=== PATIENT | female | born 1955 | race American Indian/Alaskan Native ===

== ENCOUNTER 2016-10-25 21:34 | Emergency (ER) | payer MEDICAID ==
[2016-10-25 21:47] VITALS: BP 153/78
[2016-10-25] MEDS ORDERED: Albuterol 0.083% 2.5 MG/3 ML Neb Soln NEB ONE (22:27)
[2016-10-25] MEDS ORDERED: methylPREDNISolone Sodium Succinate 125 MG/2 ML SDV IVPUSH ONE (22:27)
--- NOTE | 2016-10-25 22:33 | EDM.PDOC ---
ED HPI GENERAL MEDICAL PROBLEM - General Chief Complaint: Respiratory Problem Stated Complaint: ASMA PAIN [id number] Time Seen by Provider: 10/25/16 22:10 Source of Information: Reports: Patient History Limitations: Reports: No Limitations - History of Present Illness INITIAL COMMENTS - FREE TEXT/NARRATIVE: increasing SOB over past 2 days with RUQ pain radiating to back Previous Pebbles. No fever or chills. Productive cough clear phlegm Duration: Day(s): Location: Reports: Chest Quality: Reports: Pressure, Sharp Right Chest Pain Score (Numeric/FACES): 6 - Related Data Allergies Allergy/AdvReac Type Severity Reaction Status Date / Time amoxicillin [Amoxicillin] Allergy Cannot Verified 10/25/16 21:47 Remember cephalexin [Cephalexin] Allergy Cannot Verified 10/25/16 21:47 Remember Penicillins Allergy Cannot Verified 10/25/16 21:47 Remember Home Meds: Home Meds Phenytoin Sodium Extended [Dilantin] 100 mg PO ACLUN 03/20/13 [History] Simvastatin [Zocor] 20 mg PO BEDTIME 03/20/13 [History] Tiotropium [Spiriva HandiHaler] 18 mcg INH DAILY 03/20/13 [History] metFORMIN HCl [Metformin HCl] 500 mg PO BID 03/20/13 [History] Fluticasone/Salmeterol [Advair 500-50] 1 puff INH BID 04/05/13 [History] HCTZ/Triamterene [Maxzide 25-37.5 MG] 0.5 tab PO DAILY 04/05/13 [History] Ipratropium/Albuterol Sulfate [Duoneb 0.5 MG-3 MG/3 ML] 3 ml INH QID PRN [History] Phenytoin Sodium Extended [Dilantin] 200 mg PO BEDTIME 04/05/13 [History] Phenytoin Sodium Extended [Dilantin] 200 mg PO QAM 04/05/13 [History] Past Medical History HEENT History: Reports: Impaired Vision Other HEENT History: wears glasses Cardiovascular History: Reports: High Cholesterol, Hypertension, SOB on Exertion Respiratory History: Reports: Asthma, Bronchitis, Recurrent, COPD, Pneumonia, Recurrent, 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: Musculoskeletal History: Reports: Arthritis Other Musculoskeletal History: right knee pain Neurological History: Reports: Seizure Psychiatric History: Reports: None Endocrine/Metabolic History: Reports: Diabetes, Type II, Obesity/BMI 30+ Oncologic (Cancer) History: Reports: None Dermatologic History: Reports: None - Infectious Disease History Infectious Disease History: Reports: Chicken Pox, Mumps, Shingles - Past Surgical History GI Surgical History: Reports: Appendectomy, Cholecystectomy Musculoskeletal Surgical History: Reports: None Social & Family History - Family History Family Medical History: Noncontributory - Tobacco Use Smoking Status *Q: Never Smoker Years of Tobacco use: 20 Packs/Tins Daily: 0.5 Used Tobacco, but Quit: No Month Tobacco Last Used: February Hand Smoke Exposure: No - Alcohol Use Days Per Week of Alcohol Use: 0 - Recreational Drug Use Recreational Drug Use: No - Living Situation & Occupation Living situation: Reports: with Family Occupation: Retired ED ROS GENERAL - Review of Systems Review Of Systems: See Below Constitutional: Denies: Fever, Chills, Weakness HEENT: Reports: No Symptoms Respiratory: Reports: Shortness of Breath, Wheezing, Pleuritic Chest Pain, Cough Cardiovascular: Reports: No Symptoms GI/Abdominal: Reports: Abdominal Pain (ruq radiating to back) : Reports: No Symptoms Musculoskeletal: Reports: No Symptoms Neurological: Reports: No Symptoms Psychiatric: Reports: No Symptoms ED EXAM, GENERAL - Physical Exam Exam: See Below Exam Limited By: No Limitations General Appearance: Alert, Mild Distress, Obese Eye Exam: Bilateral Eye: EOMI, PERRL Ears: Normal External Exam Nose: Normal Inspection Throat/Mouth: Normal Inspection Head: Atraumatic, Normocephalic Neck: Normal Inspection Respiratory/Chest: No Respiratory Distress, Rhonchi (throughout), Wheezing Cardiovascular: Normal Peripheral Pulses, Regular Rate, Rhythm GI/Abdominal: Normal Bowel Sounds, Soft, Tender (mild epigastri and RUQ with palpation) Extremities: Normal Inspection. No: Pedal Edema Neurological: Alert, Oriented Psychiatric: Normal Affect Skin Exam: Warm, Dry, Intact, Normal Color Course - Vital Signs Last Recorded V/S: Last Vital Signs Temp 97.2 F 10/25/16 21:42 Pulse 99 10/25/16 21:42 Resp 20 10/25/16 21:42 BP 153/78 H 10/25/16 21:42 Pulse Ox 94 L 10/25/16 21:42 - Orders/Labs/Meds Orders: Active Orders 24 hr Category Date Time Status EKG Documentation Completion [RC] STAT Care 10/25/16 22:06 Active RT Aerosol Therapy [RC] ASDIRECTED Care 10/25/16 22:28 Active Labs: Laboratory Tests 10/25/16 10/25/16 10/25/16 Range/Units 22:35 22:35 22:35 WBC 15.4 H (5.0-10.0) 10^3/uL RBC 4.39 (4.2-5.4) 10^6/uL Hgb 13.1 (12.0-16.0) g/dL Hct 40.5 (37.0-47.0) % MCV 92.3 (80-100) fL MCH 29.8 (27.0-34.0) pg MCHC 32.3 L (33.0-35.0) g/dL Plt Count 239 (150-450) 10^3/uL Neut % (Auto) 62.7 (42.2-75.2) % Lymph % (Auto) 25.7 (20.5-50.1) % [place] % (Auto) 7.0 (2-8) % Eos % (Auto) 4.4 H (1.0-3.0) % Baso % (Auto) 0.2 (0.0-1.0) % Sodium 141 (135-145) mmol/L Potassium 3.8 (3.6-5.0) mmol/L Chloride 103 (101-111) mmol/L Carbon Dioxide 26.0 (21.0-31.0) mmol/L Anion Gap 15.8 BUN 18 (7-18) mg/dL Creatinine 0.8 (0.6-1.3) mg/dL Est Cr Clr Drug Dosing 56.93 mL/min Estimated GFR (MDRD) > 60 BUN/Creatinine Ratio 22.50 Glucose 124 H (74-105) mg/dL Calcium 8.7 (8.4-10.2) mg/dl Total Bilirubin 0.3 (0.2-1.0) mg/dL AST 18 (10-42) IU/L ALT 22 (10-60) IU/L Alkaline Phosphatase 82 (42-121) IU/L CK-MB (CK-2) 2.40 (0.4-4.7) ng/mL Troponin I < 0.02 (0.00-0.02) ng/ml B-Natriuretic Peptide < 5 (0-100) pg/ml Total Protein 7.6 (6.7-8.2) g/dl Albumin 3.5 (3.2-5.5) g/dl Globulin 4.1 Albumin/Globulin Ratio 0.85 Amylase 34 (28-100) U/L Lipase 19 L (22-51) U/L Urine Color (YELLOW) Urine Appearance (CLEAR) Urine pH (5.0-9.0) Ur Specific [place] (1.005-1.030) Urine Protein (NEGATIVE) Urine Glucose (UA) (NEGATIVE) Urine Ketones (NEGATIVE) Urine Occult Blood (NEGATIVE) Urine Nitrite (NEGATIVE) Urine Bilirubin (NEGATIVE) Urine Urobilinogen (0.2-1.0) mg/dL Ur Leukocyte Esterase (NEGATIVE) Urine RBC /HPF Urine WBC (0-5/HPF) /HPF Ur Epithelial Cells /HPF Urine Bacteria (0-FEW/HPF) /HPF 10/26/16 Range/Units 00:00 WBC (5.0-10.0) 10^3/uL RBC (4.2-5.4) 10^6/uL Hgb (12.0-16.0) g/dL Hct (37.0-47.0) % MCV (80-100) fL MCH (27.0-34.0) pg MCHC (33.0-35.0) g/dL Plt Count (150-450) 10^3/uL Neut % (Auto) (42.2-75.2) % Lymph % (Auto) (20.5-50.1) % [place] % (Auto) (2-8) % Eos % (Auto) (1.0-3.0) % Baso % (Auto) (0.0-1.0) % Sodium (135-145) mmol/L Potassium (3.6-5.0) mmol/L Chloride (101-111) mmol/L Carbon Dioxide (21.0-31.0) mmol/L Anion Gap BUN (7-18) mg/dL Creatinine (0.6-1.3) mg/dL Est Cr Clr Drug Dosing mL/min Estimated GFR (MDRD) BUN/Creatinine Ratio Glucose (74-105) mg/dL Calcium (8.4-10.2) mg/dl Total Bilirubin (0.2-1.0) mg/dL AST (10-42) IU/L ALT (10-60) IU/L Alkaline Phosphatase (42-121) IU/L CK-MB (CK-2) (0.4-4.7) ng/mL Troponin I (0.00-0.02) ng/ml B-Natriuretic Peptide (0-100) pg/ml Total Protein (6.7-8.2) g/dl Albumin (3.2-5.5) g/dl Globulin Albumin/Globulin Ratio Amylase (28-100) U/L Lipase (22-51) U/L Urine Color Yellow (YELLOW) Urine Appearance Slightly cloudy (CLEAR) Urine pH 5.5 (5.0-9.0) Ur Specific [place] 1.010 (1.005-1.030) Urine Protein Negative (NEGATIVE) Urine Glucose (UA) Negative (NEGATIVE) Urine Ketones Negative (NEGATIVE) Urine Occult Blood Small H (NEGATIVE) Urine Nitrite Negative (NEGATIVE) Urine Bilirubin Negative (NEGATIVE) Urine Urobilinogen 0.2 (0.2-1.0) mg/dL Ur Leukocyte Esterase Negative (NEGATIVE) Urine RBC 0-5 /HPF Urine WBC 0-5 (0-5/HPF) /HPF Ur Epithelial Cells Few /HPF Urine Bacteria Few (0-FEW/HPF) /HPF Meds: Medications Discontinued Medications Generic Name Dose Route Start Last Admin Trade Name Freq PRN Reason Stop Dose Admin Albuterol 2.5 mg 10/25/16 22:27 10/25/16 22:34 Proventil Neb Soln NEB 10/25/16 22:28 2.5 mg ONETIME ONE Administration Methylprednisolone Sodium Succinate 125 mg 10/25/16 22:27 10/25/16 22:41 Solu-Medrol IVPUSH 10/25/16 22:28 125 mg ONETIME ONE Administration Departure - Departure Time of Disposition: 01:12 Disposition: Home, Self-Care 01 Condition: Good Clinical Impression: RUQ pain, Diabetes mellitus type 2 in obese Asthma Qualifiers: Asthma severity: moderate persistent Asthma complication type: uncomplicated Qualified Code(s): J45.40 - Moderate persistent asthma, uncomplicated - Discharge Information Instructions: Asthma, Adult Forms: ED Department Discharge Additional Instructions: continue nebulizer treatments follow up in clinic next week for recheck, sooner if symptoms worsen - My Orders Last 24 Hours: My Active Orders 10/25/16 22:06 EKG Documentation Completion [RC] STAT 10/25/16 22:28 RT Aerosol Therapy [RC] ASDIRECTED - Assessment/Plan Last 24 Hours: My Active Orders 10/25/16 22:06 EKG Documentation Completion [RC] STAT 10/25/16 22:28 RT Aerosol Therapy [RC] ASDIRECTED
[2016-10-25 23:04] LABS: CHLORIDE,CL 103 mmol/L (101-111); SODIUM,NA 141 mmol/L (135-145)
--- NOTE | 2016-11-04 10:30 | EKG ---
10/25/2016- DYLON SALTER JULY - This is a 12-lead standard EKG showing normal sinus rhythm with a ventricular rate of 93 beats per minute. Normal SC interval. QRS duration. Normal axis. No ST-T changes. [facility] /[id number]
== END 2016-10-26 01:14 | disposition home or self-care (01) ==
LOC: DL.ED 21:34
DX: J45.40 Moderate persistent asthma, uncomplicated (principal); R10.11 Right upper quadrant pain; E13.9 Other specified diabetes mellitus without complications; E66.9 Obesity, unspecified; E78.00 Pure hypercholesterolemia, unspecified; I10 Essential (primary) hypertension; J44.9 Chronic obstructive pulmonary disease, unspecified; M19.90 Unspecified osteoarthritis, unspecified site; Z87.01 Personal history of pneumonia (recurrent); Z88.1 Allergy status to other antibiotic agents; Z88.0 Allergy status to penicillin; Z79.899 Other long term (current) drug therapy; Z90.49 Acquired absence of other specified parts of digestive tract; Z79.84 Long term (current) use of oral hypoglycemic drugs
CPT/HCPCS: 36415; 71020; 74176; 80053; 81001; 82150; 82553; 83690; 83880; 84484; 85025; 93005; 94640; 96374; 99285; J2930; J7620

== ENCOUNTER 2017-01-11 04:12 | Emergency (ER) | payer MEDICAID ==
[2017-01-11] MEDS ORDERED: Albuterol/Ipratropium 3.0-0.5 MG/3 ML Neb Soln NEB ONE (04:44)
--- NOTE | 2017-01-11 04:48 | EDM.PDOC ---
ED HPI GENERAL MEDICAL PROBLEM - General Chief Complaint: Respiratory Problem Stated Complaint: DIFFICULTY BREATHING, HIGH FEVER Time Seen by Provider: 01/11/17 04:47 Source of Information: Reports: Patient History Limitations: Reports: No Limitations - History of Present Illness INITIAL COMMENTS - FREE TEXT/NARRATIVE: c/o 2 weeks h/o F/C cough sob. denies CP. - Related Data Allergies Allergy/AdvReac Type Severity Reaction Status Date / Time amoxicillin [Amoxicillin] Allergy Cannot Verified 01/11/17 04:57 Remember cephalexin [Cephalexin] Allergy Cannot Verified 01/11/17 04:57 Remember Penicillins Allergy Cannot Verified 01/11/17 04:57 Remember Home Meds: Home Meds Phenytoin Sodium Extended [Dilantin] 100 mg PO ACLUN 03/20/13 [History] Simvastatin [Zocor] 20 mg PO BEDTIME 03/20/13 [History] Tiotropium [Spiriva HandiHaler] 18 mcg INH DAILY 03/20/13 [History] Fluticasone/Salmeterol [Advair 500-50] 1 puff INH BID 04/05/13 [History] HCTZ/Triamterene [Maxzide 25-37.5 MG] 0.5 tab PO DAILY 04/05/13 [History] Ipratropium/Albuterol Sulfate [Duoneb 0.5 MG-3 MG/3 ML] 3 ml INH QID PRN [History] Phenytoin Sodium Extended [Dilantin] 200 mg PO BEDTIME 04/05/13 [History] Phenytoin Sodium Extended [Dilantin] 200 mg PO QAM 04/05/13 [History] Acetaminophen [Tylenol Extra Strength] 500 mg PO Q6H PRN 01/11/17 [History] Albuterol [Proventil HFA] 2 puff INH Q6H PRN 01/11/17 [History] metFORMIN [Glucophage XR] 500 mg PO BIDMEALS 01/11/17 [History] Past Medical History HEENT History: Reports: Impaired Vision Other HEENT History: wears glasses Cardiovascular History: Reports: High Cholesterol, Hypertension, SOB on Exertion Respiratory History: Reports: Asthma, Bronchitis, Recurrent, COPD, Pneumonia, Recurrent, 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: Musculoskeletal History: Reports: Arthritis Other Musculoskeletal History: right knee pain Neurological History: Reports: Seizure Psychiatric History: Reports: None Endocrine/Metabolic History: Reports: Diabetes, Type II, Obesity/BMI 30+ Oncologic (Cancer) History: Reports: None Dermatologic History: Reports: None - Infectious Disease History Infectious Disease History: Reports: Chicken Pox, Mumps, Shingles - Past Surgical History GI Surgical History: Reports: Appendectomy, Cholecystectomy Musculoskeletal Surgical History: Reports: None Social & Family History - Family History Family Medical History: Noncontributory - Tobacco Use Smoking Status *Q: Never Smoker Years of Tobacco use: 20 Packs/Tins Daily: 0.5 Used Tobacco, but Quit: No Month Tobacco Last Used: February Second Hand Smoke Exposure: No - Alcohol Use Days Per Week of Alcohol Use: 0 - Recreational Drug Use Recreational Drug Use: No - Living Situation & Occupation Living situation: Reports: with Family Occupation: Retired ED ROS GENERAL - Review of Systems Review Of Systems: ROS reveals no pertinent complaints other than HPI. ED EXAM, GENERAL - Physical Exam Exam: See Below Exam Limited By: No Limitations General Appearance: Alert, WD/WN, Mild Distress, Other (discomfort) Ears: Hearing Grossly Normal Throat/Mouth: Normal Voice, No Airway Compromise, Inflammation Head: Atraumatic Neck: Non-Tender, Full Range of Motion Respiratory/Chest: No Respiratory Distress, No Accessory Muscle Use, Rhonchi, Wheezing. No: Decreased Breath Sounds Cardiovascular: Regular Rate, Rhythm GI/Abdominal: Soft, Non-Tender Neurological: Alert, Oriented, Normal Cognition, Normal Gait, No Motor/Sensory Deficits Psychiatric: Flat Affect Skin Exam: Warm, Dry, Normal Color Lymphatic: No Adenopathy Course - Vital Signs Last Recorded V/S: Last Vital Signs Temp 36.6 C 01/11/17 04:22 Pulse 109 H 01/11/17 04:22 Resp 22 H 01/11/17 04:22 BP 150/88 H 01/11/17 04:22 Pulse Ox 90 L 01/11/17 04:22 - Orders/Labs/Meds Orders: Active Orders 24 hr Category Date Time Status RT Aerosol Therapy [RC] ASDIRECTED Care 01/11/17 04:45 Active Chest 2V [CR] Urgent Exams 01/11/17 04:41 Taken Meds: Medications Discontinued Medications Generic Name Dose Route Start Last Admin Trade Name Freq PRN Reason Stop Dose Admin Albuterol/Ipratropium 3 ml 01/11/17 04:44 01/11/17 04:52 Duoneb 3.0-0.5 Mg/3 Ml NEB 01/11/17 04:45 3 ml ONETIME ONE Administration Azithromycin 500 mg 01/11/17 05:24 Zithromax PO 01/11/17 05:25 ONETIME ONE Methylprednisolone Sodium Succinate 125 mg 01/11/17 05:24 Solu-Medrol IM 01/11/17 05:25 ONETIME ONE Promethazine HCl/Codeine 5 ml 01/11/17 05:24 Phenergan With Codeine PO 01/11/17 05:25 ONETIME ONE - Re-Assessments/Exams Free Text/Narrative Re-Assessment/Exam: 01/11/17 05:26 re-exam; s/p duoneb = much better. Departure - Departure Time of Disposition: 05:27 Disposition: Home, Self-Care 01 Condition: Good Clinical Impression: COPD with acute exacerbation, Bronchospasm with bronchitis, acute Asthma exacerbation Qualifiers: Asthma severity: mild Asthma persistence: persistent Qualified Code(s): J45.31 - Mild persistent asthma with (acute) exacerbation - Discharge Information Forms: ED Department Discharge - My Orders Last 24 Hours: My Active Orders 01/11/17 04:41 Chest 2V [CR] Urgent 01/11/17 04:45 RT Aerosol Therapy [RC] ASDIRECTED - Assessment/Plan Last 24 Hours: My Active Orders 01/11/17 04:41 Chest 2V [CR] Urgent 01/11/17 04:45 RT Aerosol Therapy [RC] ASDIRECTED
[2017-01-11 04:58] VITALS: BP 150/88
[2017-01-11] MEDS ORDERED: Codeine/Promethazine 10-6.25 MG/5 ML Syrup 5 ML UD Cup PO ONE (05:24)
[2017-01-11] MEDS ORDERED: Azithromycin 250 MG Tab PO ONE (05:24)
[2017-01-11] MEDS ORDERED: methylPREDNISolone Sodium Succinate 125 MG/2 ML SDV IM ONE (05:24)
== END 2017-01-11 05:56 | disposition home or self-care (01) ==
LOC: DL.ED 04:12 → EEVIPCON 04:12 → DL.ED 05:56
DX: J44.1 Chronic obstructive pulmonary disease with (acute) exacerbation (principal); J20.9 Acute bronchitis, unspecified; J45.31 Mild persistent asthma with (acute) exacerbation; I10 Essential (primary) hypertension; Z88.1 Allergy status to other antibiotic agents; Z88.0 Allergy status to penicillin; Z79.899 Other long term (current) drug therapy; Z79.84 Long term (current) use of oral hypoglycemic drugs
CPT/HCPCS: 71020; 87804; 94640; 96372; 99284; A9270; J2930

== ENCOUNTER 2018-06-30 22:45 | Inpatient (IN) | payer MEDICAID ==
--- NOTE | 2018-06-30 23:21 | EDM.PDOC ---
ED HPI GENERAL MEDICAL PROBLEM - General Chief Complaint: Respiratory Problem Stated Complaint: CANT BREATHE, ASTHMA [id number] Time Seen by Provider: 06/30/18 23:21 Source of Information: Reports: Patient, RN, RN Notes Reviewed History Limitations: Reports: No Limitations - History of Present Illness INITIAL COMMENTS - FREE TEXT/NARRATIVE: Pt to ER with c/o difficulty breathing. She states she has been using nebs yesterday and today. Tonight she had increased SOB. Treated for pneumonia about 1 month ago. Admits to fever, chills, chest tightness. Denies N/V/D. Admits to hx of asthma, COPD, HTN, DMII. Denies smoking. Onset: Gradual - Related Data Allergies Allergy/AdvReac Type Severity Reaction Status Date / Time amoxicillin [Amoxicillin] Allergy Cannot Verified 01/26/18 20:59 Remember cephalexin [Cephalexin] Allergy Cannot Verified 01/26/18 20:59 Remember Penicillins Allergy Cannot Verified 01/26/18 20:59 Remember Home Meds: Home Meds Phenytoin Sodium Extended [Dilantin] 100 mg PO ACLUN 03/20/13 [History] Simvastatin [Zocor] 20 mg PO BEDTIME 03/20/13 [History] Tiotropium [Spiriva HandiHaler] 18 mcg INH DAILY 03/20/13 [History] Fluticasone/Salmeterol [Advair 500-50] 1 puff INH BID 04/05/13 [History] HCTZ/Triamterene [Maxzide 25-37.5 MG] 0.5 tab PO DAILY 04/05/13 [History] Phenytoin Sodium Extended [Dilantin] 200 mg PO BEDTIME 04/05/13 [History] Phenytoin Sodium Extended [Dilantin] 200 mg PO QAM 04/05/13 [History] Acetaminophen [Tylenol Extra Strength] 500 mg PO Q6H PRN 01/11/17 [History] Albuterol [Proventil HFA] 2 puff INH Q6H PRN 01/11/17 [History] metFORMIN [Glucophage XR] 500 mg PO BIDMEALS 01/11/17 [History] Past Medical History HEENT History: Reports: Impaired Vision Other HEENT History: wears glasses Cardiovascular History: Reports: High Cholesterol, Hypertension, SOB on Exertion Respiratory History: Reports: Asthma, Bronchitis, Recurrent, COPD, Pneumonia, Recurrent, SOB Genitourinary History: Reports: None 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: Musculoskeletal History: Reports: Arthritis Other Musculoskeletal History: right knee pain Neurological History: Reports: Seizure Psychiatric History: Reports: None Endocrine/Metabolic History: Reports: Diabetes, Type II, Obesity/BMI 30+ Hematologic History: Reports: None Immunologic History: Reports: None Oncologic (Cancer) History: Reports: None Dermatologic History: Reports: None - Infectious Disease History Infectious Disease History: Reports: Chicken Pox, Mumps, Shingles - Past Surgical History Head Surgeries/Procedures: Reports: None GI Surgical History: Reports: Appendectomy, Cholecystectomy Musculoskeletal Surgical History: Reports: None Social & Family History - Family History Family Medical History: Noncontributory - Tobacco Use Smoking Status *Q: Former Smoker Used Tobacco, but Quit: Yes Month/Year Tobacco Last Used: 1998 - Caffeine Use Caffeine Use: Reports: Coffee - Recreational Drug Use Recreational Drug Use: No - Living Situation & Occupation Living situation: Reports: with Family Occupation: Retired ED ROS GENERAL - Review of Systems Review Of Systems: ROS reveals no pertinent complaints other than HPI. ED EXAM, GENERAL - Physical Exam Exam: See Below Exam Limited By: No Limitations General Appearance: Alert, WD/WN, No Apparent Distress Eye Exam: Bilateral Eye: EOMI, Normal Inspection Ears: Normal External Exam, Hearing Grossly Normal Nose: Normal Inspection Throat/Mouth: Normal Inspection, Normal Voice, No Airway Compromise Head: Atraumatic, Normocephalic Neck: Normal Inspection Respiratory/Chest: Decreased Breath Sounds, Crackles, Wheezing Cardiovascular: Normal Peripheral Pulses, Regular Rate, Rhythm, No Edema, No Gallop, No JVD, No Murmur, No Rub Peripheral Pulses: 2+: Radial (L), Radial (R) GI/Abdominal: Normal Bowel Sounds, Non-Tender, Distended (Female) Exam: Deferred Rectal (Female) Exam: Deferred Back Exam: Normal Inspection, Decreased Range of Motion Extremities: Normal Inspection, Normal Range of Motion, Non-Tender, Normal Capillary Refill, No Pedal Edema Neurological: Alert, Oriented, CN II-XII Intact, Normal Cognition, Normal Gait, Normal Reflexes, No Motor/Sensory Deficits Psychiatric: Normal Affect, Normal Mood Skin Exam: Warm, Dry, Intact, Normal Color, No Rash Lymphatic: No Adenopathy Course - Vital Signs Last Recorded V/S: Last Vital Signs Temp 99.0 F 06/30/18 22:56 Pulse 104 H 06/30/18 22:56 Resp 18 06/30/18 22:56 BP 122/73 06/30/18 22:56 Pulse Ox 88 L 06/30/18 22:56 - Orders/Labs/Meds Orders: Active Orders 24 hr Category Date Time Status Peripheral IV Care [RC] . DIRECTED Care 06/30/18 23:13 Active RT Aerosol Therapy [RC] ASDIRECTED Care 06/30/18 23:28 Active CULTURE BLOOD [BC] Stat Lab 06/30/18 23:31 Received CULTURE BLOOD [BC] Stat Lab 06/30/18 23:31 Received Levofloxacin/Dextrose 5%-Water [Levaquin in D5W 500 MG/ Med 07/01/18 00:51 Active 100 ML] 500 mg Premix Bag 1 bag IV ONETIME Sodium Chloride 0.9% [Saline Flush] Med 06/30/18 23:12 Active 10 ml FLUSH ASDIRECTED PRN Blood Culture x2 Reflex Set [OM.PC] Stat Oth 06/30/18 23:13 Ordered Peripheral IV Insertion Adult [OM.PC] Stat Oth 06/30/18 23:12 Ordered Medication Orders Levofloxacin/Dextrose 500 mg/ (Premix) 100 mls @ 100 mls/hr IV ONETIME ONE Stop: 07/01/18 01:50 Last Admin: 07/01/18 01:12 Dose: 100 mls/hr Sodium Chloride (Saline Flush) 10 ml FLUSH ASDIRECTED PRN PRN Reason: Keep Vein Open Last Admin: 06/30/18 23:38 Dose: 10 ml Labs: Laboratory Tests 06/30/18 06/30/18 06/30/18 Range/Units 23:31 23:31 23:31 WBC 11.4 H (5.0-10.0) 10^3/uL RBC 4.79 (4.2-5.4) 10^6/uL Hgb 14.1 D (12.0-16.0) g/dL Hct 43.2 (37.0-47.0) % MCV 90.2 (80-100) fL MCH 29.4 (27.0-34.0) pg MCHC 32.6 L (33.0-35.0) g/dL Plt Count 254 (150-450) 10^3/uL Neut % (Auto) 67.7 (42.2-75.2) % Lymph % (Auto) 20.6 (20.5-50.1) % [place] % (Auto) 8.5 H (2-8) % Eos % (Auto) 3.0 (1.0-3.0) % Baso % (Auto) 0.2 (0.0-1.0) % Sodium 135 (135-145) mmol/L Potassium 3.2 L (3.6-5.0) mmol/L Chloride 97 L (101-111) mmol/L Carbon Dioxide 24.0 (21.0-31.0) mmol/L Anion Gap 17.2 BUN 17 (7-18) mg/dL Creatinine 0.8 (0.6-1.3) mg/dL Est Cr Clr Drug Dosing 55.45 mL/min Estimated GFR (MDRD) > 60 BUN/Creatinine Ratio 21.25 Glucose 117 H (74-105) mg/dL Lactic Acid 1.1 (0.5-2.2) mmol/L Calcium 8.6 (8.4-10.2) mg/dl Total Bilirubin 0.3 (0.2-1.0) mg/dL AST 21 (10-42) IU/L ALT 16 (10-60) IU/L Alkaline Phosphatase 86 (42-121) IU/L Troponin I < 0.02 (0.00-0.02) ng/ml Total Protein 8.1 (6.7-8.2) g/dl Albumin 3.7 (3.2-5.5) g/dl Globulin 4.4 Albumin/Globulin Ratio 0.84 Meds: Medications Generic Name Dose Route Start Last Admin Trade Name Freq PRN Reason Stop Dose Admin Levofloxacin/Dextrose 500 mg/ 100 mls @ 100 mls/hr 07/01/18 00:51 07/01/18 01 :12 Premix IV 07/01/18 01:50 100 mls/hr ONETIME ONE Administration Sodium Chloride 10 ml 06/30/18 23:12 06/30/18 23:38 Saline Flush FLUSH 10 ml ASDIRECTED PRN Administration Keep Vein Open Discontinued Medications Generic Name Dose Route Start Last Admin Trade Name Freq PRN Reason Stop Dose Admin Acetaminophen 650 mg 07/01/18 00:45 07/01/18 01:11 Tylenol PO 07/01/18 00:46 650 mg NOW ONE Administration Albuterol/Ipratropium 3 ml 06/30/18 23:27 06/30/18 23:53 Duoneb 3.0-0.5 Mg/3 Ml NEB 06/30/18 23:28 3 ml ONETIME ONE Administration Sodium Chloride 1,000 mls @ 999 mls/hr 06/30/18 23:27 06/30/18 23:52 Normal Saline IV 07/01/18 00:27 999 mls/hr .BOLUS ONE Administration Methylprednisolone Sodium Succinate 125 mg 06/30/18 23:27 06/30/18 23:53 Solu-Medrol IVPUSH 06/30/18 23:28 125 mg ONETIME ONE Administration - Radiology Interpretation Free Text/Narrative:: Chest xray: FINDINGS: Limitations: Study is technically limited due to body habitus. Lungs: Patchy airspace disease in the mid and lower lungs, unchanged. Pleural space: No pleural effusion. No pneumothorax. Heart/Mediastinum: Mediastinal contours are unremarkable. Stable mild enlargement of the cardiac silhouette. Vasculature: Stable vascular calcifications in the aorta. Bones/joints: Unremarkable for age. IMPRESSION: 1. Patchy airspace disease in the mid and lower lungs, unchanged. Findings suggest persistent or recurrent atelectasis/pneumonia. Recommend clinical correlation. Recommend followup chest x-ray in 4-6 weeks to insure resolution of these findings. 2. Incidental/nonacute findings are listed in the report. Thank you for allowing us to participate in the care of your patient. Dictated and Authenticated by: Teresita Sanchez MD 06/30/2018 11:54 PM Central Time ([place] & [place]) See rad report - Re-Assessments/Exams Free Text/Narrative Re-Assessment/Exam: 07/01/18 01:13 Discussed patient case with Dr. Barahona who agreed to accept the patient for inpatient. Departure - Departure Time of Disposition: 01:13 Disposition: Admitted As Inpatient 64 Condition: Fair Clinical Impression: COPD with exacerbation, Hypoxia Pneumonia Qualifiers: Pneumonia type: due to unspecified organism Laterality: bilateral Lung location : lower lobe of lung Qualified Code(s): J18.1 - Lobar pneumonia, unspecified organism - Discharge Information *PRESCRIPTION DRUG MONITORING PROGRAM REVIEWED*: No *COPY OF PRESCRIPTION DRUG MONITORING REPORT IN PATIENT LILIANA: No - My Orders Last 24 Hours: My Active Orders 06/30/18 23:12 Sodium Chloride 0.9% [Saline Flush] 10 ml FLUSH ASDIRECTED PRN Peripheral IV Insertion Adult [OM.PC] Stat 06/30/18 23:13 Peripheral IV Care [RC] . DIRECTED Blood Culture x2 Reflex Set [OM.PC] Stat 06/30/18 23:28 RT Aerosol Therapy [RC] ASDIRECTED 06/30/18 23:31 CULTURE BLOOD [BC] Stat CULTURE BLOOD [BC] Stat 07/01/18 00:51 Levofloxacin/Dextrose 5%-Water [Levaquin in D5W 500 MG/100 ML] 500 mg Premix Bag 1 bag IV ONETIME - Assessment/Plan Last 24 Hours: My Active Orders 06/30/18 23:12 Sodium Chloride 0.9% [Saline Flush] 10 ml FLUSH ASDIRECTED PRN Peripheral IV Insertion Adult [OM.PC] Stat 06/30/18 23:13 Peripheral IV Care [RC] . DIRECTED Blood Culture x2 Reflex Set [OM.PC] Stat 06/30/18 23:28 RT Aerosol Therapy [RC] ASDIRECTED 06/30/18 23:31 CULTURE BLOOD [BC] Stat CULTURE BLOOD [BC] Stat 07/01/18 00:51 Levofloxacin/Dextrose 5%-Water [Levaquin in D5W 500 MG/100 ML] 500 mg Premix Bag 1 bag IV ONETIME
[2018-06-30] MEDS ORDERED: methylPREDNISolone Sodium Succinate 125 MG/2 ML SDV IVPUSH ONE (23:27)
[2018-06-30] MEDS ORDERED: Albuterol/Ipratropium 3.0-0.5 MG/3 ML Neb Soln NEB ONE (23:27)
[2018-06-30] MEDS ORDERED: Sodium Chloride 0.9% 1,000 ML IV ONE (23:27)
[2018-06-30] MEDS: Sodium Chloride 0.9% 10 ML Syringe FLUSH PRN (23:38)
[2018-07-01 00:10] LABS: ANION GAP 17.2; CHLORIDE,CL 97 mmol/L (101-111); SODIUM,NA 135 mmol/L (135-145)
[2018-07-01] MEDS ORDERED: Acetaminophen 325 MG Tab PO ONE (00:45)
[2018-07-01] MEDS ORDERED: Levofloxacin/Dextrose 5%-Water 500 MG in Premix Bag 1 BAG IV ONE (00:51)
[2018-07-01] MEDS ORDERED: Albuterol 0.083% 2.5 MG/3 ML Neb Soln NEB PRN (01:12)
[2018-07-01] MEDS ORDERED: Azithromycin 500 MG in Sodium Chloride 0.9% 250 ML IV SCH (02:00)
[2018-07-01] MEDS ORDERED: Levofloxacin/Dextrose 5%-Water 250 MG in Premix Bag 1 BAG IV ONE (02:15)
[2018-07-01] MEDS: Sodium Chloride 0.9% 1,000 ML IV SCH ×2 (02:29→16:50)
[2018-07-01] MEDS ORDERED: Acetaminophen 325 MG Tab PO PRN (05:00)
[2018-07-01] MEDS: Albuterol/Ipratropium 3.0-0.5 MG/3 ML Neb Soln NEB SCH ×3 (07:11→17:40)
[2018-07-01] MEDS ORDERED: Non-Formulary Medication 1 Each (Metformin [Glucophage Xr] 500 MG) PO SCH (08:00)
[2018-07-01] MEDS: Enoxaparin 40 MG/0.4 ML Syringe SUBCUT SCH (08:17)
[2018-07-01] MEDS: Hydrochlorothiazide/Triamterene 25-37.5 Tab PO SCH (08:17)
[2018-07-01] MEDS: methylPREDNISolone Sodium Succinate 40 MG/1 ML SDV IVPUSH SCH ×2 (08:17→16:10)
[2018-07-01] MEDS ORDERED: Iopamidol 755 Mg/ML 100 ML Bottle IVPUSH ONE (10:21)
--- NOTE | 2018-07-01 10:56 | PCM.HP ---
H&P History of Present Illness - General Date of Service: 07/01/18 Admit Problem/Dx: Admission Diagnosis/Problem Admission Diagnosis/Problem Pneumonia due to organism Source of Information: Patient History Limitations: Reports: No Limitations - History of Present Illness Initial Comments - Free Text/Narative: The patient is a 63-year-old female with medical history of hypertension, COPD, diabetes mellitus2. Patient was admitted for pneumonia in the past one month. This time, the patient presented with complaint of shortness of breath which has been going on for the past 2 days. Has significantly worsened. Has associated generalized body malaise and mild cough. Also has associated low- grade fever. She came to the emergency room and was noted to be hypoxic with oxygen saturation in the upper 80s. She had to be placed on supplemental oxygen. She denies having chest pain. Denies headache or blurring of vision. Denies abdominal pain change in bowel or urinary habits. - Related Data Allergies/Adverse Reactions: Allergies Allergy/AdvReac Type Severity Reaction Status Date / Time amoxicillin [Amoxicillin] Allergy Cannot Verified 01/26/18 20:59 Remember cephalexin [Cephalexin] Allergy Cannot Verified 01/26/18 20:59 Remember Penicillins Allergy Cannot Verified 01/26/18 20:59 Remember Home Medications: Home Meds Phenytoin Sodium Extended [Dilantin] 100 mg PO ACLUN 03/20/13 [History] Simvastatin [Zocor] 20 mg PO BEDTIME 03/20/13 [History] Tiotropium [Spiriva HandiHaler] 18 mcg INH DAILY 03/20/13 [History] Fluticasone/Salmeterol [Advair 500-50] 1 puff INH BID 04/05/13 [History] HCTZ/Triamterene [Maxzide 25-37.5 MG] 0.5 tab PO DAILY 04/05/13 [History] Phenytoin Sodium Extended [Dilantin] 200 mg PO BEDTIME 04/05/13 [History] Phenytoin Sodium Extended [Dilantin] 200 mg PO QAM 04/05/13 [History] Acetaminophen [Tylenol Extra Strength] 500 mg PO Q6H PRN 01/11/17 [History] Albuterol [Proventil HFA] 2 puff INH Q6H PRN 01/11/17 [History] metFORMIN [Glucophage XR] 500 mg PO BIDMEALS 01/11/17 [History] Past Medical History HEENT History: Reports: Impaired Vision Other HEENT History: wears glasses Cardiovascular History: Reports: High Cholesterol, Hypertension, SOB on Exertion Respiratory History: Reports: Asthma, Bronchitis, Recurrent, COPD, Pneumonia, Recurrent, Sleep Apnea, SOB Genitourinary History: Reports: None 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: Musculoskeletal History: Reports: Arthritis Other Musculoskeletal History: right knee pain Neurological History: Reports: Seizure Psychiatric History: Reports: None Endocrine/Metabolic History: Reports: Diabetes, Type II, Obesity/BMI 30+ Hematologic History: Reports: None Immunologic History: Reports: None Oncologic (Cancer) History: Reports: None Dermatologic History: Reports: None - Infectious Disease History Infectious Disease History: Reports: Chicken Pox, Mumps, Shingles - Past Surgical History Head Surgeries/Procedures: Reports: None GI Surgical History: Reports: Appendectomy, Cholecystectomy Musculoskeletal Surgical History: Reports: None Social & Family History - Family History Family Medical History: Noncontributory - Tobacco Use Smoking Status *Q: Former Smoker Used Tobacco, but Quit: Yes Month/Year Tobacco Last Used: 1998 - Caffeine Use Caffeine Use: Reports: Coffee - Recreational Drug Use Recreational Drug Use: No - Living Situation & Occupation Living situation: Reports: with Family Occupation: Retired H&P Review of Systems - Review of Systems: Review Of Systems: See Below Exam - Exam Exam: See Below - Vital Signs Vital Signs: Last Vital Signs Temp 36.6 C 07/01/18 07:51 Pulse 88 07/01/18 07:51 Resp 20 07/01/18 07:51 BP 116/63 07/01/18 07:51 Pulse Ox 91 L 07/01/18 07:51 Weight: 105.143 kg - Exam General: Alert, Oriented, 4 HEENT: PERRLA, Hearing Intact, Mucosa Moist & [place], Nares Patent, Normal Nasal Septum, Posterior Pharynx Clear, Conjunctiva Clear, EOMI, EACs Clear, TMs Clear Neck: Supple, Trachea Midline, 2 Lungs: Decreased Breath Sounds, Rhonchi Cardiovascular: Regular Rate, Regular Rhythm GI/Abdominal Exam: Normal Bowel Sounds, Soft, Non-Tender, No Organomegaly, No Distention, No Abnormal Bruit, No Mass, Pelvis Stable Back Exam: Normal Inspection, Full Range of Motion, NT Extremities: Normal Inspection, Normal Range of Motion, Non-Tender, No Pedal Edema, Normal Capillary Refill - Patient Data Lab Results Last 24 hrs: Laboratory Results - last 24 hr 06/30/18 06/30/18 06/30/18 Range/Units 23:31 23:31 23:31 WBC 11.4 H (5.0-10.0) 10^3/uL RBC 4.79 (4.2-5.4) 10^6/uL Hgb 14.1 D (12.0-16.0) g/dL Hct 43.2 (37.0-47.0) % MCV 90.2 (80-100) fL MCH 29.4 (27.0-34.0) pg MCHC 32.6 L (33.0-35.0) g/dL Plt Count 254 (150-450) 10^3/uL Neut % (Auto) 67.7 (42.2-75.2) % Lymph % (Auto) 20.6 (20.5-50.1) % [place] % (Auto) 8.5 H (2-8) % Eos % (Auto) 3.0 (1.0-3.0) % Baso % (Auto) 0.2 (0.0-1.0) % Sodium 135 (135-145) mmol/L Potassium 3.2 L (3.6-5.0) mmol/L Chloride 97 L (101-111) mmol/L Carbon Dioxide 24.0 (21.0-31.0) mmol/L Anion Gap 17.2 BUN 17 (7-18) mg/dL Creatinine 0.8 (0.6-1.3) mg/dL Est Cr Clr Drug Dosing 55.45 mL/min Estimated GFR (MDRD) > 60 BUN/Creatinine Ratio 21.25 Glucose 117 H (74-105) mg/dL Lactic Acid 1.1 (0.5-2.2) mmol/L Calcium 8.6 (8.4-10.2) mg/dl Total Bilirubin 0.3 (0.2-1.0) mg/dL AST 21 (10-42) IU/L ALT 16 (10-60) IU/L Alkaline Phosphatase 86 (42-121) IU/L Troponin I < 0.02 (0.00-0.02) ng/ml Total Protein 8.1 (6.7-8.2) g/dl Albumin 3.7 (3.2-5.5) g/dl Globulin 4.4 Albumin/Globulin Ratio 0.84 Result Diagrams: 06/30/18 23:31 06/30/18 23:31 Problem List Initiated/Reviewed/Updated: Yes Orders Last 24hrs: Active Orders 24 hr Category Date Time Status Patient Status [ADT] Routine ADT 07/01/18 01:12 Active Oxygen Therapy [RC] PRN Care 07/01/18 01:12 Active Pulse Oximetry [RC] CONTINUOUS Care 07/01/18 01:14 Active RT Aerosol Therapy [RC] ASDIRECTED Care 07/01/18 01:16 Active Up ad [place] [RC] ASDIRECTED Care 07/01/18 01:12 Active VTE/DVT Education [RC] PER UNIT ROUTINE Care 07/01/18 01:12 Active Vital Signs [RC] 00,04,08,12,16,20 Care 07/01/18 01:12 Active Regular Diet [DIET] Diet 07/01/18 Breakfast Active Chest w Cont [CT] Routine Exams 07/01/18 10:21 Ordered CULTURE BLOOD [BC] Stat Lab 06/30/18 23:31 Received CULTURE BLOOD [BC] Stat Lab 06/30/18 23:31 Received CULTURE SPUTUM + SMEAR [RM] Stat Lab 07/01/18 01:12 Ordered Acetaminophen [Tylenol] Med 07/01/18 05:00 Active 650 mg PO Q4H PRN Albuterol [Proventil Neb Soln] Med 07/01/18 01:12 Active 2.5 mg NEB Q2H PRN Albuterol/Ipratropium [DuoNeb 3.0-0.5 MG/3 ML] Med 07/01/18 07:00 Active 3 ml NEB Q6HRRT Enoxaparin [Lovenox] Med 07/01/18 09:00 Active 40 mg SUBCUT DAILY HCTZ/Triamterene [Maxzide 25-37.5 MG] Med 07/01/18 09:00 Active 0.5 each PO DAILY Levofloxacin/Dextrose 5%-Water [Levaquin in D5W 750 MG/ Med 07/02/18 01:00 Active 150 ML] 750 mg Premix Bag 1 bag IV Q24H Sodium Chloride 0.9% [Normal Saline] 1,000 ml Med 07/01/18 01:15 Active IV ASDIRECTED Sodium Chloride 0.9% [Saline Flush] Med 06/30/18 23:12 Active 10 ml FLUSH ASDIRECTED PRN metFORMIN [Glucophage] Med 07/03/18 18:00 Active 1,000 mg PO BIDMEALS methylPREDNISolone Sod Succ [Solu-MEDROL] Med 07/01/18 08:00 Active 40 mg IVPUSH Q8H Blood Culture x2 Reflex Set [OM.PC] Stat Ot 06/30/18 23:13 Ordered Peripheral IV Insertion Adult [OM.PC] Stat Oth 06/30/18 23:12 Ordered Resuscitation Status Routine Resus Stat 07/01/18 01:12 Ordered Medication Orders Acetaminophen (Tylenol) 650 mg PO Q4H PRN PRN Reason: Pain (Mild 1-3)/fever Albuterol (Proventil Neb Soln) 2.5 mg NEB Q2H PRN PRN Reason: shortness of breath/wheezing Albuterol/Ipratropium (Duoneb 3.0-0.5 Mg/3 Ml) 3 ml NEB Q6HRRT [facility] Last Admin: 07/01/18 07:11 Dose: 3 ml Enoxaparin Sodium (Lovenox) 40 mg SUBCUT DAILY [facility] Last Admin: 07/01/18 08:17 Dose: 40 mg Sodium Chloride (Normal Saline) 1,000 mls @ 75 mls/hr IV ASDIRECTED [facility] Last Admin: 07/01/18 02:29 Dose: 75 mls/hr Levofloxacin/Dextrose 750 mg/ (Premix) 150 mls @ 150 mls/hr IV Q24H [facility] Metformin HCl (Glucophage) 1,000 mg PO BIDMEALS [facility] Methylprednisolone Sodium Succinate (Solu-Medrol) 40 mg IVPUSH Q8H [facility] Last Admin: 07/01/18 08:17 Dose: 40 mg Sodium Chloride (Saline Flush) 10 ml FLUSH ASDIRECTED PRN PRN Reason: Keep Vein Open Last Admin: 06/30/18 23:38 Dose: 10 ml Triamterene/HCTZ (Maxzide 25-37.5 Mg) 0.5 each PO DAILY [facility] Last Admin: 07/01/18 08:17 Dose: 0.5 each Assessment/Plan Comment:: #. Probable pneumonia The patient presented with complaint of shortness of breath Chest x-ray showed patchy bilateral infiltrates Was noted to have leukocytosis. Patient was treated about a month ago with pneumonia. Now being readmitted for similar illness. #. COPD exacerbation The patient does have diminished air entry bilaterally. Has expiratory rhonchi Chest x-ray obtained and suggested patchy bilateral infiltrate #. Hypokalemia Serum potassium is low down to 3.2 #. Diabetes mellitus type 2 Has been on metformin #. Hypertension Blood pressure has been intermittently elevated above target range. Plan: Admit patient to medical floor Send sputum for Gram stain and cultures Start patient on intravenous levofloxacin Monitor blood sugar before meals and at bedtime Correct potassium deficit Nebulized bronchodilators, DuoNeb 4 times a day Albuterol every 4 hours Intravenous Solu Medrol Obtain repeat basic metabolic panel Obtain CT scan of the chest. I would like to rule out pulmonary fibrosis
[2018-07-01] MEDS ORDERED: Potassium Chloride 10 MEQ Tab.ER PO ONE (11:29)
[2018-07-01] MEDS: Insulin Lispro 100 Units/ML 3 ML Vial SUBCUT SCH ×2 (12:49→17:06)
[2018-07-02] MEDS: methylPREDNISolone Sodium Succinate 40 MG/1 ML SDV IVPUSH SCH ×4 (00:35→23:59)
[2018-07-02] MEDS: Levofloxacin/Dextrose 5%-Water 750 MG in Premix Bag 1 BAG IV SCH (00:37)
[2018-07-02] MEDS: Albuterol/Ipratropium 3.0-0.5 MG/3 ML Neb Soln NEB SCH ×4 (00:46→17:59)
[2018-07-02 07:17] LABS: ANION GAP 14.8; CHLORIDE,CL 102 mmol/L (101-111); SODIUM,NA 138 mmol/L (135-145)
[2018-07-02] MEDS: Insulin Lispro 100 Units/ML 3 ML Vial SUBCUT SCH ×3 (08:05→17:00)
[2018-07-02] MEDS: Hydrochlorothiazide/Triamterene 25-37.5 Tab PO SCH (08:15)
[2018-07-02] MEDS: Enoxaparin 40 MG/0.4 ML Syringe SUBCUT SCH (08:15)
--- NOTE | 2018-07-02 11:34 | PN ---
DATE: 07/02/2018 SUBJECTIVE: Mrs. Shavon Galvan is a 63-year-old female with medical history significant for hypertension, hyperlipidemia, chronic obstructive pulmonary disease, type 2 diabetes mellitus, admitted with pneumonia. For the last 24 hours, the patient is continued on IV fluids and IV antibiotics. She denies any complaints of chest pain. No shortness of breath. No abdominal pain. No nausea. No vomiting. No diarrhea. REVIEW OF SYSTEMS: Cardiovascular, respiratory, gastrointestinal, neurology, and constitutional were all evaluated. PHYSICAL EXAMINATION: Vital Signs: Temperature of 97.6, pulse of 78, blood pressure 132/68, respiratory rate of 13, saturating at 93% on 1 L of oxygen. General Appearance: The patient is well oriented to time, place, and person. Follows commands spontaneously. Cardiovascular System: S1 and S2 heard with normal intensity. No gallops. Respiratory System: Clear to auscultation bilaterally. No wheeze. No crepitations. Abdomen: Soft. Bowel sounds positive. Nontender. No rigidity. Extremities: No edema bilateral lower extremities. Neurology: No gross focal neurological deficit. MEDICATIONS: Reviewed. Continue with Tylenol 650 every 4 hours as needed for pain and fever, DuoNeb 3 mL nebulizer every 6 hours, Lovenox 40 mg subcutaneous daily, Humalog subcu, levofloxacin daily, metformin 1000 mg twice a day, methylprednisolone 40 mg IV q.8 hourly, triamterene and hydrochlorothiazide daily half a tab. LABORATORY DATA: Labs reviewed. Sodium 138, potassium 4.8, chloride 102, bicarb 26, BUN 10, creatinine 0.5, and glucose 126. ASSESSMENT: 1. Pneumonia. 2. Possible chronic obstructive pulmonary disease exacerbation. 3. Type 2 diabetes mellitus. 4. Hypertension. PLAN: 1. Pneumonia. The patient is currently on IV antibiotic with Levaquin. Continue the same. We will recheck a CBC in the a.m. We will follow the sputum culture report. 2. COPD exacerbation. The patient is on nebulizer treatment and IV methylprednisolone. Continue the same. We will gradually taper down the steroids when she is more stable. 3. Type 2 diabetes mellitus. The patient noted to be on metformin and insulin regimen. Continue the same. Check her fingersticks with each meals, have her on supplemental scale insulin as needed. 4. Hypertension. Well controlled. Continue with current antihypertensive medications. 5. DVT prophylaxis. Continue with Lovenox for DVT prophylaxis. [facility] /[id number]
[2018-07-02] MEDS ORDERED: Sodium Chloride 0.9% 10 ML Syringe FLUSH PRN (12:18)
[2018-07-02] MEDS: Sodium Chloride 0.9% 10 ML Syringe FLUSH PRN (16:09)
[2018-07-03] MEDS: Albuterol/Ipratropium 3.0-0.5 MG/3 ML Neb Soln NEB SCH ×3 (01:01→13:00)
[2018-07-03] MEDS: Levofloxacin/Dextrose 5%-Water 750 MG in Premix Bag 1 BAG IV SCH (01:02)
[2018-07-03 06:28] LABS: ANION GAP 16.4; CHLORIDE,CL 100 mmol/L (101-111); SODIUM,NA 137 mmol/L (135-145)
[2018-07-03] MEDS: Insulin Lispro 100 Units/ML 3 ML Vial SUBCUT SCH ×2 (07:42→12:19)
[2018-07-03] MEDS: Enoxaparin 40 MG/0.4 ML Syringe SUBCUT SCH (08:52)
[2018-07-03] MEDS: methylPREDNISolone Sodium Succinate 40 MG/1 ML SDV IVPUSH SCH (08:53)
[2018-07-03] MEDS: Hydrochlorothiazide/Triamterene 25-37.5 Tab PO SCH (08:59)
[2018-07-03 12:33] VITALS: BP 125/66
[2018-07-03] MEDS ORDERED: metFORMIN 500 MG Tab PO SCH (18:00)
--- NOTE | 2018-07-03 18:36 | DISCH ---
ADMITTING DIAGNOSES: 1. Pneumonia. 2. Acute chronic obstructive pulmonary disease exacerbation. 3. Hypokalemia. DISCHARGE DIAGNOSES: 1. Pneumonia, improved with IV antibiotics, switched to oral antibiotic with Levaquin. 2. Acute chronic obstructive pulmonary disease exacerbation, resolved on tapered dose of steroids. 3. Hypokalemia, replaced with oral potassium chloride. HISTORY OF PRESENT ILLNESS: Mrs. Mine Sands is a 63-year-old female with medical history significant for hypertension, hyperlipidemia, type 2 diabetes mellitus, chronic obstructive pulmonary disease, admitted with complaints of increasing shortness of breath and noted to have pneumonia. The patient had a CT scan of the chest and also an x-ray of the chest. She was treated with IV methylprednisolone, nebulizer treatment, and IV antibiotics. Her symptoms got resolved. She is back to normal. She is able to ambulate well without any difficulty. She is switched to oral antibiotic with oral Levaquin for next 7 days and also she will continue with her inhalation treatment at home as scheduled. She is given tapered dose of prednisone for home. She is discharged home in stable condition. She is advised to follow with her primary care physician in the next 1 week of time. DISCHARGE MEDICATIONS: Include: 1. Tylenol 500 mg every 6 hours as needed for pain and fever. 2. Albuterol 2 puffs inhalation every 6 hours as needed for wheezing. 3. Advair 1 puff inhalation twice a day. 4. Maxzide 25/37.5 mg half a tab daily. 5. Phenytoin 100 mg before lunch, 200 mg every morning, and 200 mg at bedtime. 6. Simvastatin 20 mg at bedtime. 7. Spiriva 18 mcg inhalation daily. 8. Levaquin 500 mg daily for 7 days. 9. Metformin 500 mg twice a day. 10.Prednisone tapered dose. PHYSICAL EXAMINATION: On the day of discharge: Vital Signs: Temperature of 97.8, pulse of 78, blood pressure 128/67, respiratory rate of 20, saturating at 93%. General Appearance: The patient is well oriented to time, place, and person. Follows commands spontaneously. Cardiovascular System: S1 and S2 heard with normal intensity. No gallops. Respiratory System: Clear to auscultation bilaterally. No wheeze. No crepitations. Abdomen: Soft. Bowel sounds positive. Nontender. No rigidity. Extremities: No edema in bilateral lower extremities. Neurology: No gross focal neurological deficit. CONDITION ON ADMISSION: Poor. CONDITION ON DISCHARGE: Stable. DISPOSITION: Discharged to home. DIET: Cardiac healthy diet and consistent carbohydrate diet. ACTIVITY: As tolerated. FOLLOWUP: Follow with primary care physician in the next 1 week of time. Spent over 35 minutes of time in evaluating and treating this patient and discharge planning. [facility] /[id number]
== END 2018-07-03 12:30 | disposition home or self-care (01) | DRG 190 ==
LOC: DL.ED 22:45 → UNDOADMIN 07-01 01:06 → DL.MS 07-01 01:06
PROVIDERS: ADMIT Hospitalist; ATTEND Hospitalist
DX: J44.0 Chronic obstructive pulmonary disease with (acute) lower respiratory infection (principal); J18.1 Lobar pneumonia, unspecified organism; Z68.41 Body mass index [BMI] 40.0-44.9, adult; J44.1 Chronic obstructive pulmonary disease with (acute) exacerbation; I10 Essential (primary) hypertension; E11.9 Type 2 diabetes mellitus without complications; E78.5 Hyperlipidemia, unspecified; H54.7 Unspecified visual loss; E87.6 Hypokalemia; E78.00 Pure hypercholesterolemia, unspecified; M19.91 Primary osteoarthritis, unspecified site; E66.9 Obesity, unspecified; Z88.1 Allergy status to other antibiotic agents; Z90.49 Acquired absence of other specified parts of digestive tract; Z88.0 Allergy status to penicillin; Z79.84 Long term (current) use of oral hypoglycemic drugs; Z87.891 Personal history of nicotine dependence; Z79.899 Other long term (current) drug therapy
CPT/HCPCS: 36415; 71045; 71260; 80048; 80053; 82962; 83605; 84484; 85025; 85027; 87040; 87070; 87205; 90686; 94640; 94760; 96365; 96366; 96375; 99285-25; A9270-GY; J1650; J1815; J1956; J2920; J2930; J7030; J7620-GY; Q9967

== ENCOUNTER 2020-11-06 16:43 | Emergency (ER) | payer MEDICARE, MEDICAID, OTHER ==
[2020-11-06] MEDS ORDERED: methylPREDNISolone Sodium Succinate 125 MG/2 ML SDV IVPUSH ONE (16:56)
[2020-11-06 16:57] VITALS: BP 153/85; PULSE 127
--- NOTE | 2020-11-06 17:09 | EDM.PDOC ---
ED HPI GENERAL MEDICAL PROBLEM - General Chief Complaint: Respiratory Problem Stated Complaint: HARD TIME TO BREATH Time Seen by Provider: 11/06/20 17:00 Source of Information: Reports: Patient, RN, RN Notes Reviewed History Limitations: Reports: No Limitations - History of Present Illness INITIAL COMMENTS - FREE TEXT/NARRATIVE: Mine is a 65 y/o female with history of COPD who presents to the ED via personal vehicle with complaints of shortness of breath and productive cough. The patient states her symptoms began two days ago and have progressively worsened in that time. The patient states she has been utilizing her previously prescribed inhalers and nebulizers with no alleviation in symptoms. She attest to having home oxygen, but notes that she does not wear it at all times as it is cumbersome. She denies fever, shaking chills, headache, vision changes, sore throat, chest pain, palpitations, or dyspepsia. The patient states she has received full vaccination for COVID. She denies tobacco, alcohol, or recreational drug use. thoracic Pain Score (Numeric/FACES): 8 - Related Data Allergies Allergy/AdvReac Type Severity Reaction Status Date / Time amoxicillin [Amoxicillin] Allergy Cannot Verified 11/06/20 16:58 Remember cephalexin [Cephalexin] Allergy Cannot Verified 11/06/20 16:58 Remember Penicillins Allergy Cannot Verified 11/06/20 16:58 Remember Home Meds: Home Meds Phenytoin Sodium Extended [Dilantin] 100 mg PO ACLUN 03/20/13 [History] Simvastatin [Zocor] 20 mg PO BEDTIME 03/20/13 [History] Tiotropium [Spiriva HandiHaler] 18 mcg INH DAILY 03/20/13 [History] Fluticasone/Salmeterol [Advair 500-50] 1 puff INH BID 04/05/13 [History] HCTZ/Triamterene [Maxzide 25-37.5 MG] 0.5 tab PO DAILY 04/05/13 [History] Phenytoin Sodium Extended [Dilantin] 200 mg PO BEDTIME 04/05/13 [History] Phenytoin Sodium Extended [Dilantin] 200 mg PO QAM 04/05/13 [History] Acetaminophen [Tylenol Extra Strength] 500 mg PO Q6H PRN 01/11/17 [History] Albuterol [Proventil HFA] 2 puff INH Q6H PRN 01/11/17 [History] metFORMIN [Glucophage XR] 500 mg PO BIDMEALS 01/11/17 [History] Albuterol/Ipratropium [DuoNeb 3.0-0.5 MG/3 ML] 3 ml IH QID PRN 11/06/20 [History] Past Medical History HEENT History: Reports: Impaired Vision Other HEENT History: wears glasses Cardiovascular History: Reports: High Cholesterol, Hypertension, SOB on Exertion Respiratory History: Reports: Asthma, Bronchitis, Recurrent, COPD, Pneumonia, Recurrent, Sleep Apnea, SOB Genitourinary History: Reports: None 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: Musculoskeletal History: Reports: Arthritis Other Musculoskeletal History: right knee pain Neurological History: Reports: Seizure Psychiatric History: Reports: None Endocrine/Metabolic History: Reports: Diabetes, Type II, Obesity/BMI 30+ Hematologic History: Reports: None Immunologic History: Reports: None Oncologic (Cancer) History: Reports: None Dermatologic History: Reports: None - Infectious Disease History Infectious Disease History: Reports: Chicken Pox, Mumps, Shingles - Past Surgical History Head Surgeries/Procedures: Reports: None GI Surgical History: Reports: Appendectomy, Cholecystectomy Musculoskeletal Surgical History: Reports: None Social & Family History - Family History Family Medical History: No Pertinent Family History - Caffeine Use Caffeine Use: Reports: Coffee - Living Situation & Occupation Living situation: Reports: with Family Occupation: Retired ED ROS GENERAL - Review of Systems Review Of Systems: Comprehensive ROS is negative, except as noted in HPI. ED EXAM, GENERAL - Physical Exam Exam: See Below Exam Limited By: Respiratory Distress General Appearance: Alert, Moderate Distress (Respiratory distress), Obese Eye Exam: Bilateral Eye: EOMI, Normal Inspection, PERRL (3mm) Ears: Normal External Exam, Normal Canal, Hearing Grossly Normal, Normal TMs Ear Exam: Bilateral Ear: Auricle Normal, Canal Normal, TM normal Nose: Normal Inspection, Normal Mucosa, No Blood Throat/Mouth: Normal Inspection, Normal Oropharynx, Normal Voice, No Airway Compromise Head: Atraumatic, Normocephalic Neck: Normal Inspection, Supple, Non-Tender, Full Range of Motion. No: Lymphadenopathy (L), Lymphadenopathy (R) Respiratory/Chest: Chest Non-Tender, Respiratory Distress, Rhonchi (To bilateral upper lobes), Wheezing (Expiratory diffuse), Accessory Muscle Use, Prolonged Expiration. No: Crackles, Rales, Stridor, Retractions, Splinting Cardiovascular: Normal Peripheral Pulses, Regular Rate, Rhythm, No Edema, No Gallop, No JVD, No Murmur, No Rub, Tachycardia Peripheral Pulses: 2+: Radial (L), Radial (R) GI/Abdominal: Normal Bowel Sounds, Soft, Non-Tender, No Distention, No Abnormal Bruit, No Mass, Pelvis Stable (Female) Exam: Deferred Rectal (Female) Exam: Deferred Back Exam: Normal Inspection, Full Range of Motion Extremities: Normal Inspection, Normal Range of Motion, Non-Tender, No Pedal Edema, Normal Capillary Refill Neurological: Alert, Oriented, CN II-XII Intact, Normal Cognition, Normal Gait, No Motor/Sensory Deficits Psychiatric: Normal Affect, Normal Mood Skin Exam: Warm, Dry, Intact, Normal Color, No Rash. No: Cyanosis, Jaundice, Mottled, Pallor Lymphatic: No Adenopathy #1 Interpretation EKG Date: 11/06/20 Time: 01:15 Rhythm: Other (Sinus Tachycardia) Rate (Beats/Min): 115 [place]: Normal P-Wave: Present QRS: Normal ST-T: Normal QT: Normal TN/PQ Interval: 0.153 Comparison: No Change EKG Interpretation Comments: ST; No evidence of acute myocardial ischemia Course - Vital Signs Last Recorded V/S: Last Vital Signs Temp 100.9 F H 11/06/20 16:52 Pulse 127 H 11/06/20 16:52 Resp 28 H 11/06/20 16:52 BP 153/85 H 11/06/20 16:52 Pulse Ox 85 L 11/06/20 16:52 - Orders/Labs/Meds Labs: Laboratory Tests 11/06/20 11/06/20 11/06/20 Range/Units 16:55 17:00 17:00 WBC 11.7 H (5.0-10.0) 10^3/uL RBC 4.95 (4.2-5.4) 10^6/uL Hgb 14.6 (12.0-16.0) g/dL Hct 44.6 (37.0-47.0) % MCV 90.1 (80-100) fL MCH 29.5 (27.0-34.0) pg MCHC 32.7 L (33.0-35.0) g/dL Plt Count 241 (150-450) 10^3/uL Neut % (Auto) 73.4 (42.2-75.2) % Lymph % (Auto) 15.8 L (20.5-50.1) % [place] % (Auto) 10.3 H (2-8) % Eos % (Auto) 0.3 L (1.0-3.0) % Baso % (Auto) 0.2 (0.0-1.0) % Sodium 135 L (136-145) mmol/L Potassium 4.1 (3.5-5.1) mmol/L Chloride 96 L (98-107) mmol/L Carbon Dioxide 25 (21-32) mmol/L Anion Gap 18.1 H (7-13) mEq/L BUN 8 (7-18) mg/dL Creatinine 0.80 (0.55-1.02) mg/dL Est Cr Clr Drug Dosing 53.97 mL/min Estimated GFR (MDRD) > 60 BUN/Creatinine Ratio 10.0 (No establ ref range) Glucose 137 H (70-99) mg/dL Lactic Acid (0.4-2.0) mmol/L Calcium 8.5 (8.5-10.1) mg/dL Magnesium 1.9 (1.8-2.4) mg/dL Total Bilirubin 0.2 (0.2-1.0) mg/dL AST 20 (15-37) U/L ALT 23 (14-59) U/L Alkaline Phosphatase 96 (46-116) U/L Troponin I High Sens 5 (<=51) pg/mL C-Reactive Protein 11.5 H (0.0-0.9) mg/dL B-Natriuretic Peptide 9 (0-100) pg/ml Total Protein 8.4 H (6.4-8.2) g/dL Albumin 3.4 (3.4-5.0) g/dL Globulin 5.0 Albumin/Globulin Ratio 0.7 Ethyl Alcohol < 3 (0) mg/dL Influenza Type A RNA Negative (NEGATIVE) Influenza Type B RNA Negative (NEGATIVE) SARS-CoV-2 RNA (JUSTIN) Negative (NEGATIVE) 11/06/20 Range/Units 17:00 WBC (5.0-10.0) 10^3/uL RBC (4.2-5.4) 10^6/uL Hgb (12.0-16.0) g/dL Hct (37.0-47.0) % MCV (80-100) fL MCH (27.0-34.0) pg MCHC (33.0-35.0) g/dL Plt Count (150-450) 10^3/uL Neut % (Auto) (42.2-75.2) % Lymph % (Auto) (20.5-50.1) % [place] % (Auto) (2-8) % Eos % (Auto) (1.0-3.0) % Baso % (Auto) (0.0-1.0) % Sodium (136-145) mmol/L Potassium (3.5-5.1) mmol/L Chloride (98-107) mmol/L Carbon Dioxide (21-32) mmol/L Anion Gap (7-13) mEq/L BUN (7-18) mg/dL Creatinine (0.55-1.02) mg/dL Est Cr Clr Drug Dosing mL/min Estimated GFR (MDRD) BUN/Creatinine Ratio (No establ ref range) Glucose (70-99) mg/dL Lactic Acid 1.5 (0.4-2.0) mmol/L Calcium (8.5-10.1) mg/dL Magnesium (1.8-2.4) mg/dL Total Bilirubin (0.2-1.0) mg/dL AST (15-37) U/L ALT (14-59) U/L Alkaline Phosphatase (46-116) U/L Troponin I High Sens (<=51) pg/mL C-Reactive Protein (0.0-0.9) mg/dL B-Natriuretic Peptide (0-100) pg/ml Total Protein (6.4-8.2) g/dL Albumin (3.4-5.0) g/dL Globulin Albumin/Globulin Ratio Ethyl Alcohol (0) mg/dL Influenza Type A RNA (NEGATIVE) Influenza Type B RNA (NEGATIVE) SARS-CoV-2 RNA (JUSTIN) (NEGATIVE) Meds: Medications Discontinued Medications Generic Name Dose Route Start Last Admin Trade Name Freq PRN Reason Stop Dose Admin Methylprednisolone Sodium Succinate 125 mg 11/06/20 16:56 11/06/20 17:03 Methylprednisolone Sodium Succinate 125 Mg/2 Ml Sdv IVPUSH 11/06/20 16:57 125 mg ONETIME ONE Administration - Re-Assessments/Exams Free Text/Narrative Re-Assessment/Exam: 11/06/20 Solu-Medrol 125mg IVP administered. Patient verbalized improvement in work of breathing following medication administration. Findings of examination, lab work, and imaging reviewed with patient. Will treat COPD exacerbation with prednisone and azithromycin. Discussed supportive cares for COPD exacerbation. Red flag signs and symptoms which would warrant reevaluation reviewed. Patient verbalized understanding and agreement with the plan of care. Departure - Departure Time of Disposition: 18:27 Disposition: Home, Self-Care 01 Condition: Good Clinical Impression: COPD exacerbation - Discharge Information *PRESCRIPTION DRUG MONITORING PROGRAM REVIEWED*: Not Applicable *COPY OF PRESCRIPTION DRUG MONITORING REPORT IN PATIENT LILIANA: Not Applicable Instructions: Chronic Obstructive Pulmonary Disease Exacerbation, Chronic Obstructive Pulmonary Disease Referrals: Lanette Arndt MD [Primary Care Provider] - Forms: ED Department Discharge Additional Instructions: Rx: prednisone Rx: azithromycin 1.) Start your prednisone tomorrow morning. 2.) Take you antibiotic until gone, even as symptoms improve. 3.) Wear your oxygen at home, as previously prescribed. 4.) Follow up with your primary care provider in 3-5 days regarding today's visit, or return to the emergency department with any worsening or persistent symptoms despite medications. Sepsis Event Note (ED) - Evaluation Sepsis Screening Result: Possible Sepsis Risk
--- NOTE | 2020-11-06 17:26 | CR ---
EXAMINATION: Chest 1V Frontal SEX: Female AGE: 65 years CLINICAL HISTORY: 65-year-old obese female with shortness of breath and expiratory wheezing reported June 2018 to have "bilateral pneumonia". Comparison exam 30 June 2018. Interpretation: Chronic abnormalities unchanged since June 2018 CXR. Normal cardiac silhouette (size and configuration). Chronic pericardial and pleural parenchymal fibrosis left base. Symmetric prominence of the proximal pulmonary artery segments also chronic and unchanged. No new vascular congestion, cephalization of flow, alveolar edema or dependent pleural fluid accumulation. No suspicious new parenchymal lung nodule or mass lesion. No hilar or mediastinal lymphadenopathy. No alveolar infiltrates, air bronchograms or peripheral "groundglass" interstitial lung densities. No pneumothorax or pneumomediastinum.
[2020-11-06 17:41] LABS: ANION GAP 18.1 mEq/L (7-13); CHLORIDE,CL 96 mmol/L (98-107); SODIUM,NA 135 mmol/L (136-145)
[2020-11-06 18:08] LABS: CORONAVIRUS COVID-19 NAA NEGATIVE (NEGATIVE)
== END 2020-11-06 18:44 | disposition home or self-care (01) ==
LOC: DL.ED 16:43
DX: J44.1 Chronic obstructive pulmonary disease with (acute) exacerbation (principal); E78.00 Pure hypercholesterolemia, unspecified; I10 Essential (primary) hypertension; E11.9 Type 2 diabetes mellitus without complications; E66.9 Obesity, unspecified; Z68.30 Body mass index [BMI] 30.0-30.9, adult; Z88.1 Allergy status to other antibiotic agents; Z88.0 Allergy status to penicillin; Z79.899 Other long term (current) drug therapy; Z79.84 Long term (current) use of oral hypoglycemic drugs; Z20.822 Contact with and (suspected) exposure to COVID-19
CPT/HCPCS: 0240U; 36415; 71045; 80053; 80307; 83605; 83735; 83880; 84484; 85025; 86140; 93005; 96374; 99285; J2930

== ENCOUNTER 2020-11-14 15:25 | Inpatient (IN) | payer MEDICARE, OTHER, MEDICAID ==
[2020-11-14] MEDS ORDERED: Albuterol/Ipratropium 3.0-0.5 MG/3 ML Neb Soln NEB ONE (15:53)
[2020-11-14] MEDS ORDERED: methylPREDNISolone Sodium Succinate 125 MG/2 ML SDV IVPUSH ONE (15:53)
[2020-11-14] MEDS ORDERED: Albuterol 0.083% 2.5 MG/3 ML Neb Soln NEB ONE (15:54)
[2020-11-14] MEDS ORDERED: Magnesium Sulfate/Water 2 GM in Premix Bag 1 BAG IV ONE ×2 (15:55→15:57)
[2020-11-14 16:20] LABS: BASE EXCESS ARTERIAL 3 mmol/L ((-2)-(+3)); BICARBONATE,ARTERIAL 28.3 mmol/L (22-26); O2 DELIVERY DEVICE NASAL CANNULA; O2 SATURATION ARTERIAL 97 % (95-100); PCO2 ARTERIAL 49 mmHg (35-45); PO2 ARTERIAL 89 mmHg (70-100)
[2020-11-14 16:21] LABS: ALLEN TEST PERFORMED
--- NOTE | 2020-11-14 16:28 | CR ---
PROCEDURE INFORMATION: Exam: XR Chest Exam date and time: 11/14/2020 4:21 PM Age: 65 years old Clinical indication: Other: Cough, wheezing, dyspnea, hypoxia TECHNIQUE: Imaging protocol: XR of the chest. Views: 1 view. COMPARISON: CR Chest 1V Frontal 11/06/2020 5:09 PM FINDINGS: Lungs: There is mild cephalization of pulmonary vessels with mild cardiomegaly. Patchy density in the left lower lobe likely represents atelectasis due to the presence of pleural fluid. Pleural spaces: Small left pleural effusion is identified. Heart/Mediastinum: Heart size is mildly prominent. Bones/joints: Unremarkable. IMPRESSION: Probable mild CHF. Left lower lobe airspace opacity most likely represents atelectasis. Pneumonia and aspiration also possible but less likely.
[2020-11-14] MEDS: Sodium Chloride 0.9% 10 ML Syringe FLUSH PRN (16:33)
--- NOTE | 2020-11-14 16:33 | EDM.PDOC ---
<Radha Bautista - Last Filed: 11/14/20 17:29> ED HPI GENERAL MEDICAL PROBLEM - General Chief Complaint: Respiratory Problem Stated Complaint: COPD Time Seen by Provider: 11/14/20 15:30 - Related Data Allergies Allergy/AdvReac Type Severity Reaction Status Date / Time amoxicillin [Amoxicillin] Allergy Cannot Verified 11/14/20 16:38 Remember cephalexin [Cephalexin] Allergy Cannot Verified 11/14/20 16:38 Remember Penicillins Allergy Cannot Verified 11/14/20 16:38 Remember Home Meds: Home Meds Phenytoin Sodium Extended [Dilantin] 100 mg PO ACLUN 03/20/13 [History] Simvastatin [Zocor] 20 mg PO BEDTIME 03/20/13 [History] Tiotropium [Spiriva HandiHaler] 18 mcg INH DAILY 03/20/13 [History] Fluticasone/Salmeterol [Advair 500-50] 1 puff INH BID 04/05/13 [History] HCTZ/Triamterene [Maxzide 25-37.5 MG] 0.5 tab PO DAILY 04/05/13 [History] Phenytoin Sodium Extended [Dilantin] 200 mg PO BEDTIME 04/05/13 [History] Phenytoin Sodium Extended [Dilantin] 200 mg PO QAM 04/05/13 [History] Acetaminophen [Tylenol Extra Strength] 500 mg PO Q6H PRN 01/11/17 [History] Albuterol [Proventil HFA] 2 puff INH Q6H PRN 01/11/17 [History] metFORMIN [Glucophage XR] 500 mg PO BIDMEALS 01/11/17 [History] Albuterol/Ipratropium [DuoNeb 3.0-0.5 MG/3 ML] 3 ml IH QID PRN 11/06/20 [History] Course - Radiology Interpretation Free Text/Narrative:: [facility] Final Radiology Report Call: [phone] assistance Online chat: [email or web address] Name: DYLON SALTER Age: 65Years F Date: 11/14/2020 SSN: -- : 1955 Study: CR CHEST 1V FRONTAL Requesting Physician: RADHA BAUTISTA Images: 1 Addl Studies: Provided Clinical History: cough, wheezing, dyspnea, hypoxia Contrast: Contrast Medium: Contrast Amount: Contrast Method: CONFIDENTIALITY STATEMENT This report is intended only for use by the referring physician, and only in accordance with law. If you received this in error, call [phone]. Page 1 of 1 PROCEDURE INFORMATION: Exam: XR Chest Exam date and time: 11/14/2020 4:21 PM Age: 65 years old Clinical indication: Other: Cough, wheezing, dyspnea, hypoxia TECHNIQUE: Imaging protocol: XR of the chest. Views: 1 view. COMPARISON: CR Chest 1V Frontal 11/06/2020 5:09 PM FINDINGS: Lungs: There is mild cephalization of pulmonary vessels with mild cardiomegaly. Patchy density in the left lower lobe likely represents atelectasis due to the presence of pleural fluid. Pleural spaces: Small left pleural effusion is identified. Heart/Mediastinum: Heart size is mildly prominent. Bones/joints: Unremarkable. IMPRESSION: Probable mild CHF. Left lower lobe airspace opacity most likely represents atelectasis. Pneumonia and aspiration also possible but less likely. Thank you for allowing us to participate in the care of your patient. Dictated and Authenticated by: Yogi Guzman MD 11/14/2020 4:28 PM Central Time ([place] & [place]) Departure - Departure Time of Disposition: 17:29 (Admitted to Dr. Betts) Disposition: Admitted As Inpatient 64 Condition: Fair Clinical Impression: Acute exacerbation of chronic obstructive airways disease Pneumonia Qualifiers: Pneumonia type: due to unspecified organism Laterality: unspecified laterality Lung location: lower lobe of lung Qualified Code(s): J18.9 - Pneumonia, unspecified organism - Discharge Information *PRESCRIPTION DRUG MONITORING PROGRAM REVIEWED*: Not Applicable *COPY OF PRESCRIPTION DRUG MONITORING REPORT IN PATIENT LILIANA: Not Applicable Forms: ED Department Discharge <Koby Lemus - Last Filed: 11/14/20 17:37> ED HPI GENERAL MEDICAL PROBLEM - General Source of Information: Reports: Patient History Limitations: Reports: No Limitations - History of Present Illness INITIAL COMMENTS - FREE TEXT/NARRATIVE: 65 y/o F c/o COPD exacerbation for the last week which became very severe today. Pt states she was seen in the ER last week and treated for a COPD exacerbation and was sent home with antibiotics. Pt took her Rx as prescribed but she is still having SOB. She reports she has used her inhaler adn nebulizer multiple times with no relief. Reports productive green cough. Denies fever, chills, cp, abd pn, diff voiding. Duration: Week(s): Location: Reports: Chest Severity: Severe Improves with: Reports: None Past Medical History HEENT History: Reports: Impaired Vision Other HEENT History: wears glasses Cardiovascular History: Reports: High Cholesterol, Hypertension, SOB on Exertion Respiratory History: Reports: Asthma, Bronchitis, Recurrent, COPD, Pneumonia, Recurrent, Sleep Apnea, SOB Genitourinary History: Reports: None DIRECTOR OF FRONT OFFICE History: Reports: Musculoskeletal History: Reports: Arthritis Other Musculoskeletal History: right knee pain Neurological History: Reports: Seizure Psychiatric History: Reports: None Endocrine/Metabolic History: Reports: Diabetes, Type II, Obesity/BMI 30+ Hematologic History: Reports: None Immunologic History: Reports: None Oncologic (Cancer) History: Reports: None Dermatologic History: Reports: None - Infectious Disease History Infectious Disease History: Reports: Chicken Pox, Mumps, Shingles - Past Surgical History Head Surgeries/Procedures: Reports: None GI Surgical History: Reports: Appendectomy, Cholecystectomy Musculoskeletal Surgical History: Reports: None Social & Family History - Family History Family Medical History: No Pertinent Family History - Caffeine Use Caffeine Use: Reports: None - Living Situation & Occupation Living situation: Reports: with Family Occupation: Retired ED ROS GENERAL - Review of Systems Review Of Systems: Comprehensive ROS is negative, except as noted in HPI. ED EXAM, GENERAL - Physical Exam Exam: See Below General Appearance: Alert, Moderate Distress Head: Atraumatic, Normocephalic Neck: Normal Inspection, Supple, Non-Tender, Full Range of Motion Respiratory/Chest: Respiratory Distress, Wheezing Cardiovascular: Normal Peripheral Pulses GI/Abdominal: Soft, Non-Tender (Female) Exam: Deferred Rectal (Female) Exam: Deferred Back Exam: Normal Inspection, Full Range of Motion Extremities: Normal Inspection, Normal Range of Motion, No Pedal Edema, Normal Capillary Refill Neurological: Alert, Oriented, CN II-XII Intact, Normal Cognition, Normal Gait, Normal Reflexes, No Motor/Sensory Deficits Psychiatric: Normal Affect, Normal Mood Skin Exam: Warm, Intact, Diaphoretic #1 Interpretation EKG Date: 11/14/20 Time: 16:05 [place]: Normal P-Wave: Present QRS: Normal ST-T: Normal QT: Normal EKG Interpretation Comments: nsr no ectopy or st changes. Course - Vital Signs Last Recorded V/S: Last Vital Signs Temp 97.9 F 11/14/20 16:34 Pulse 94 11/14/20 16:34 Resp 18 11/14/20 16:34 BP 104/65 11/14/20 16:34 Pulse Ox 88 L 11/14/20 16:34 - Orders/Labs/Meds Orders: Active Orders 24 hr Category Date Time Status Peripheral IV Care [RC] . DIRECTED Care 11/14/20 15:53 Active RT Aerosol Therapy [RC] ASDIRECTED Care 11/14/20 15:53 Active RT Aerosol Therapy [RC] ASDIRECTED Care 11/14/20 15:55 Active CULTURE BLOOD [BC] Stat Lab 11/14/20 16:08 Results CULTURE BLOOD [BC] Stat Lab 11/14/20 16:14 Received UA RFX NINFA AND CULT IF INDIC [URIN] Stat Lab 11/14/20 15:52 Ordered Levofloxacin/Dextrose 5%-Water [Levaquin in D5W 750 MG/ Med 11/14/20 17:29 Active 150 ML] 750 mg Premix Bag 1 bag IV ONETIME Sodium Chloride 0.9% [Saline Flush] Med 11/14/20 15:52 Active 10 ml FLUSH ASDIRECTED PRN Blood Culture x2 Reflex Set [OM.PC] Stat Oth 11/14/20 15:51 Ordered Isolation [COMM] Routine Oth 11/14/20 15:53 Active Peripheral IV Insertion Adult [OM.PC] Stat Oth 11/14/20 15:52 Ordered Medication Orders Levofloxacin/Dextrose 750 mg/ (Premix) 150 mls @ 100 mls/hr IV ONETIME ONE Stop: 11/14/20 18:58 Last Admin: 11/14/20 17:36 Dose: 100 mls/hr Documented by: TAISHA Sodium Chloride (Sodium Chloride 0.9% 10 Ml Syringe) 10 ml FLUSH ASDIRECTED PRN PRN Reason: Keep Vein Open Last Admin: 11/14/20 16:33 Dose: 10 ml Documented by: TAISHA Labs: Laboratory Tests 11/14/20 11/14/20 11/14/20 Range/Units 15:57 16:08 16:14 WBC 16.2 H (5.0-10.0) 10^3/uL RBC 4.56 (4.2-5.4) 10^6/uL Hgb 13.7 (12.0-16.0) g/dL Hct 42.0 (37.0-47.0) % MCV 92.1 (80-100) fL MCH 30.0 (27.0-34.0) pg MCHC 32.6 L (33.0-35.0) g/dL Plt Count 314 (150-450) 10^3/uL Neut % (Auto) 72.8 (42.2-75.2) % Lymph % (Auto) 18.6 L (20.5-50.1) % Gibson % (Auto) 7.0 (2-8) % Eos % (Auto) 1.5 (1.0-3.0) % Baso % (Auto) 0.1 (0.0-1.0) % Add Manual Diff Yes Neutrophils % (Manual) 71 (42-75) % Band Neutrophils % 5 % Lymphocytes % (Manual) 23 (20-50) % Monocytes % (Manual) 1 L (2-8) % ABG pH (7.35-7.45) ABG pCO2 (35-45) mmHg ABG pO2 (70-100) mmHg ABG HCO3 (22-26) mmol/L ABG O2 Saturation (95-100) % ABG Base Excess ((-2)-(+3)) mmol/L Phillip Test O2 Delivery Device Sodium 139 (136-145) mmol/L Potassium 3.9 (3.5-5.1) mmol/L Chloride 100 (98-107) mmol/L Carbon Dioxide 29 (21-32) mmol/L Anion Gap 13.9 H (7-13) mEq/L BUN 15 (7-18) mg/dL Creatinine 0.84 (0.55-1.02) mg/dL Est Cr Clr Drug Dosing TNP Estimated GFR (MDRD) > 60 BUN/Creatinine Ratio 17.9 (No establ ref range) Glucose 101 H (70-99) mg/dL Lactic Acid (0.4-2.0) mmol/L Calcium 8.3 L (8.5-10.1) mg/dL Total Bilirubin 0.2 (0.2-1.0) mg/dL AST 25 (15-37) U/L ALT 40 (14-59) U/L Alkaline Phosphatase 84 (46-116) U/L Troponin I High Sens 4 (<=51) pg/mL C-Reactive Protein 11.7 H (0.0-0.9) mg/dL B-Natriuretic Peptide 6 (0-100) pg/ml Total Protein 7.9 (6.4-8.2) g/dL Albumin 2.9 L (3.4-5.0) g/dL Globulin 5.0 Albumin/Globulin Ratio 0.58 SARS-CoV-2 RNA (JUSTIN) Negative (NEGATIVE) 11/14/20 11/14/20 Range/Units 16:14 16:16 WBC (5.0-10.0) 10^3/uL RBC (4.2-5.4) 10^6/uL Hgb (12.0-16.0) g/dL Hct (37.0-47.0) % MCV (80-100) fL MCH (27.0-34.0) pg MCHC (33.0-35.0) g/dL Plt Count (150-450) 10^3/uL Neut % (Auto) (42.2-75.2) % Lymph % (Auto) (20.5-50.1) % Gibson % (Auto) (2-8) % Eos % (Auto) (1.0-3.0) % Baso % (Auto) (0.0-1.0) % Add Manual Diff Neutrophils % (Manual) (42-75) % Band Neutrophils % % Lymphocytes % (Manual) (20-50) % Monocytes % (Manual) (2-8) % ABG pH 7.38 (7.35-7.45) ABG pCO2 49 H (35-45) mmHg ABG pO2 89 (70-100) mmHg ABG HCO3 28.3 H (22-26) mmol/L ABG O2 Saturation 97 (95-100) % ABG Base Excess 3 ((-2)-(+3)) mmol/L Phillip Test Performed O2 Delivery Device Nasal cannula Sodium (136-145) mmol/L Potassium (3.5-5.1) mmol/L Chloride (98-107) mmol/L Carbon Dioxide (21-32) mmol/L Anion Gap (7-13) mEq/L BUN (7-18) mg/dL Creatinine (0.55-1.02) mg/dL Est Cr Clr Drug Dosing Estimated GFR (MDRD) BUN/Creatinine Ratio (No establ ref range) Glucose (70-99) mg/dL Lactic Acid 1.2 (0.4-2.0) mmol/L Calcium (8.5-10.1) mg/dL Total Bilirubin (0.2-1.0) mg/dL AST (15-37) U/L ALT (14-59) U/L Alkaline Phosphatase (46-116) U/L Troponin I High Sens (<=51) pg/mL C-Reactive Protein (0.0-0.9) mg/dL B-Natriuretic Peptide (0-100) pg/ml Total Protein (6.4-8.2) g/dL Albumin (3.4-5.0) g/dL Globulin Albumin/Globulin Ratio SARS-CoV-2 RNA (JUSTIN) (NEGATIVE) Meds: Medications Generic Name Dose Route Start Last Admin Trade Name Freq PRN Reason Stop Dose Admin Levofloxacin/Dextrose 750 mg/ 150 mls @ 100 mls/hr 11/14/20 17:29 11/14/20 17:36 Premix IV 11/14/20 18:58 100 mls/hr ONETIME ONE Administration Sodium Chloride 10 ml 11/14/20 15:52 11/14/20 16:33 Sodium Chloride 0.9% 10 Ml Syringe FLUSH 10 ml ASDIRECTED PRN Administration Keep Vein Open Discontinued Medications Generic Name Dose Route Start Last Admin Trade Name Freq PRN Reason Stop Dose Admin Albuterol 10 mg 11/14/20 15:54 11/14/20 16:03 Albuterol 0.083% 2.5 Mg/3 Ml Neb Soln NEB 11/14/20 15:55 10 mg ONETIME ONE Administration Albuterol/Ipratropium 3 ml 11/14/20 15:53 11/14/20 16:10 Albuterol/Ipratropium 3.0-0.5 Mg/3 Ml Neb Soln NEB 11/14/20 15:54 3 ml ONETIME ONE Administration Magnesium Sulfate 2 gm/ Premix 50 mls @ 100 mls/hr 11/14/20 15:55 11/14/20 16:29 IV 08/31/21 16:24 100 mls/hr ONETIME ONE Administration Magnesium Sulfate 2 gm/ Premix 50 mls @ 100 mls/hr 11/14/20 15:57 11/14/20 16:22 IV 11/14/20 16:26 Not Given ONETIME ONE Methylprednisolone Sodium Succinate 125 mg 11/14/20 15:53 11/14/20 16:29 Methylprednisolone Sodium Succinate 125 Mg/2 Ml Sdv IVPUSH 11/14/20 15:54 125 mg ONETIME ONE Administration Sepsis Event Note (ED) - Focused Exam Vital Signs: Vital Signs Temp Pulse Resp BP Pulse Ox Pulse Ox 11/14/20 16:34 97.9 F 94 18 104/65 88 L 11/14/20 15:55 88 91 L
[2020-11-14 16:51] LABS: ANION GAP 13.9 mEq/L (7-13); CHLORIDE,CL 100 mmol/L (98-107); SODIUM,NA 139 mmol/L (136-145)
[2020-11-14] MEDS ORDERED: Levofloxacin/Dextrose 5%-Water 750 MG in Premix Bag 1 BAG IV ONE (17:29)
[2020-11-14] MEDS ORDERED: Albuterol/Ipratropium 3.0-0.5 MG/3 ML Neb Soln NEB PRN (18:59)
[2020-11-14] MEDS ORDERED: Ondansetron 4 MG Tab.DIS PO PRN (19:07)
[2020-11-14] MEDS ORDERED: Docusate Sodium 100 MG Cap PO PRN (19:07)
[2020-11-14] MEDS ORDERED: Temazepam 15 MG Cap PO PRN (19:07)
[2020-11-14] MEDS ORDERED: Glucagon,Human Recombinant 1 MG Vial IM PRN (19:12)
[2020-11-14] MEDS ORDERED: 50% Dextrose in Water 50 ML Syringe IVPUSH PRN (19:12)
--- NOTE | 2020-11-14 19:12 | PCM.HP ---
H&P History of Present Illness - General Date of Service: 11/14/20 Admit Problem/Dx: Admission Diagnosis/Problem Admission Diagnosis/Problem Pneumonia Source of Information: Patient, Provider History Limitations: Reports: No Limitations - History of Present Illness Initial Comments - Free Text/Narative: History of COPD, no home oxygen use, diabetes, seizure disorder, dyslipidemia Recently treated for COPD with tapering steroids, azithromycin Presented with 1 day history of shortness of breath Associated with cough and small amount of sputum, fever, no sick contact no leg swelling Shortness of breath has been worsening during the day - Related Data Allergies/Adverse Reactions: Allergies Allergy/AdvReac Type Severity Reaction Status Date / Time amoxicillin [Amoxicillin] Allergy Cannot Verified 11/14/20 16:38 Remember cephalexin [Cephalexin] Allergy Cannot Verified 11/14/20 16:38 Remember Penicillins Allergy Cannot Verified 11/14/20 16:38 Remember Home Medications: Home Meds Phenytoin Sodium Extended [Dilantin] 100 mg PO ACLUN 03/20/13 [History] Simvastatin [Zocor] 20 mg PO BEDTIME 03/20/13 [History] Tiotropium [Spiriva HandiHaler] 18 mcg INH DAILY 03/20/13 [History] Fluticasone/Salmeterol [Advair 500-50] 1 puff INH BID 04/05/13 [History] HCTZ/Triamterene [Maxzide 25-37.5 MG] 0.5 tab PO DAILY 04/05/13 [History] Phenytoin Sodium Extended [Dilantin] 200 mg PO BEDTIME 04/05/13 [History] Phenytoin Sodium Extended [Dilantin] 200 mg PO QAM 04/05/13 [History] Acetaminophen [Tylenol Extra Strength] 500 mg PO Q6H PRN 01/11/17 [History] metFORMIN [Glucophage XR] 500 mg PO BIDMEALS 01/11/17 [History] Albuterol/Ipratropium [DuoNeb 3.0-0.5 MG/3 ML] 3 ml IH QID PRN 11/06/20 [History] Past Medical History HEENT History: Reports: Impaired Vision Other HEENT History: wears glasses Cardiovascular History: Reports: High Cholesterol, Hypertension, SOB on Exertion Respiratory History: Reports: Asthma, Bronchitis, Recurrent, COPD, Pneumonia, Recurrent, Sleep Apnea, SOB Genitourinary History: Reports: None 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: Reports: Musculoskeletal History: Reports: Arthritis Other Musculoskeletal History: right knee pain Neurological History: Reports: Seizure Psychiatric History: Reports: None Endocrine/Metabolic History: Reports: Diabetes, Type II, Obesity/BMI 30+ Hematologic History: Reports: None Immunologic History: Reports: None Oncologic (Cancer) History: Reports: None Dermatologic History: Reports: None - Infectious Disease History Infectious Disease History: Reports: Chicken Pox, Mumps, Shingles - Past Surgical History Head Surgeries/Procedures: Reports: None HEENT Surgical History: Reports: None Cardiovascular Surgical History: Reports: None GI Surgical History: Reports: Appendectomy, Cholecystectomy Musculoskeletal Surgical History: Reports: None Social & Family History - Family History Family Medical History: No Pertinent Family History - Tobacco Use Tobacco Use Status *Q: Unknown Ever Used Tobacco - Caffeine Use Caffeine Use: Reports: Coffee - Recreational Drug Use Recreational Drug Use: No - Living Situation & Occupation Living situation: Reports: with Family Occupation: Retired H&P Review of Systems - Review of Systems: Review Of Systems: See Below General: Denies: Fever, Chills Pulmonary: Reports: Shortness of Breath, Wheezing, Cough, Sputum Gastrointestinal: Denies: Abdominal Pain Genitourinary: Denies: Dysuria Psychiatric: Denies: Confusion Exam - Exam Exam: See Below - Vital Signs Vital Signs: Last Vital Signs Temp 97.8 F 11/14/20 18:03 Pulse 106 H 11/14/20 18:03 Resp 20 11/14/20 18:03 BP 114/60 11/14/20 18:03 Pulse Ox 90 L 11/14/20 18:03 Weight: 224 lb - Exam General: Alert, Oriented Neck: Supple Lungs: Decreased Breath Sounds, Wheezing Cardiovascular: Regular Rate, Regular Rhythm Extremities: No Pedal Edema Neuro Extensive - Mental Status: Alert, Oriented x3 - Patient Data Lab Results Last 24 hrs: Laboratory Results - last 24 hr 11/14/20 11/14/20 11/14/20 Range/Units 15:57 16:08 16:14 WBC 16.2 H (5.0-10.0) 10^3/uL RBC 4.56 (4.2-5.4) 10^6/uL Hgb 13.7 (12.0-16.0) g/dL Hct 42.0 (37.0-47.0) % MCV 92.1 (80-100) fL MCH 30.0 (27.0-34.0) pg MCHC 32.6 L (33.0-35.0) g/dL Plt Count 314 (150-450) 10^3/uL Neut % (Auto) 72.8 (42.2-75.2) % Lymph % (Auto) 18.6 L (20.5-50.1) % [place] % (Auto) 7.0 (2-8) % Eos % (Auto) 1.5 (1.0-3.0) % Baso % (Auto) 0.1 (0.0-1.0) % Add Manual Diff Yes Neutrophils % (Manual) 71 (42-75) % Band Neutrophils % 5 % Lymphocytes % (Manual) 23 (20-50) % Monocytes % (Manual) 1 L (2-8) % ABG pH (7.35-7.45) ABG pCO2 (35-45) mmHg ABG pO2 (70-100) mmHg ABG HCO3 (22-26) mmol/L ABG O2 Saturation (95-100) % ABG Base Excess ((-2)-(+3)) mmol/L Phillip Test O2 Delivery Device Sodium 139 (136-145) mmol/L Potassium 3.9 (3.5-5.1) mmol/L Chloride 100 (98-107) mmol/L Carbon Dioxide 29 (21-32) mmol/L Anion Gap 13.9 H (7-13) mEq/L BUN 15 (7-18) mg/dL Creatinine 0.84 (0.55-1.02) mg/dL Est Cr Clr Drug Dosing TNP Estimated GFR (MDRD) > 60 BUN/Creatinine Ratio 17.9 (No establ ref range) Glucose 101 H (70-99) mg/dL Lactic Acid (0.4-2.0) mmol/L Calcium 8.3 L (8.5-10.1) mg/dL Total Bilirubin 0.2 (0.2-1.0) mg/dL AST 25 (15-37) U/L ALT 40 (14-59) U/L Alkaline Phosphatase 84 (46-116) U/L Troponin I High Sens 4 (<=51) pg/mL C-Reactive Protein 11.7 H (0.0-0.9) mg/dL B-Natriuretic Peptide 6 (0-100) pg/ml Total Protein 7.9 (6.4-8.2) g/dL Albumin 2.9 L (3.4-5.0) g/dL Globulin 5.0 Albumin/Globulin Ratio 0.58 SARS-CoV-2 RNA (JUSTIN) Negative (NEGATIVE) 11/14/20 11/14/20 Range/Units 16:14 16:16 WBC (5.0-10.0) 10^3/uL RBC (4.2-5.4) 10^6/uL Hgb (12.0-16.0) g/dL Hct (37.0-47.0) % MCV (80-100) fL MCH (27.0-34.0) pg MCHC (33.0-35.0) g/dL Plt Count (150-450) 10^3/uL Neut % (Auto) (42.2-75.2) % Lymph % (Auto) (20.5-50.1) % [place] % (Auto) (2-8) % Eos % (Auto) (1.0-3.0) % Baso % (Auto) (0.0-1.0) % Add Manual Diff Neutrophils % (Manual) (42-75) % Band Neutrophils % % Lymphocytes % (Manual) (20-50) % Monocytes % (Manual) (2-8) % ABG pH 7.38 (7.35-7.45) ABG pCO2 49 H (35-45) mmHg ABG pO2 89 (70-100) mmHg ABG HCO3 28.3 H (22-26) mmol/L ABG O2 Saturation 97 (95-100) % ABG Base Excess 3 ((-2)-(+3)) mmol/L Phillip Test Performed O2 Delivery Device Nasal cannula Sodium (136-145) mmol/L Potassium (3.5-5.1) mmol/L Chloride (98-107) mmol/L Carbon Dioxide (21-32) mmol/L Anion Gap (7-13) mEq/L BUN (7-18) mg/dL Creatinine (0.55-1.02) mg/dL Est Cr Clr Drug Dosing Estimated GFR (MDRD) BUN/Creatinine Ratio (No establ ref range) Glucose (70-99) mg/dL Lactic Acid 1.2 (0.4-2.0) mmol/L Calcium (8.5-10.1) mg/dL Total Bilirubin (0.2-1.0) mg/dL AST (15-37) U/L ALT (14-59) U/L Alkaline Phosphatase (46-116) U/L Troponin I High Sens (<=51) pg/mL C-Reactive Protein (0.0-0.9) mg/dL B-Natriuretic Peptide (0-100) pg/ml Total Protein (6.4-8.2) g/dL Albumin (3.4-5.0) g/dL Globulin Albumin/Globulin Ratio SARS-CoV-2 RNA (JUSTIN) (NEGATIVE) Result Diagrams: 11/14/20 16:08 11/14/20 16:14 Scott Results Last 24 hrs: Microbiology 11/14/20 16:08 Anaerobic Blood Culture - Final Blood - Venous - Iv Start 11/14/20 15:57 Influenza Type A Antigen Screen - Final Nasal, Unspecified NEGATIVE INFLUENZA A VIRUS AG REFERENCE RANGE: NEGATIVE Influenza Type B Antigen Screen - Final NEGATIVE INFLUENZA B VIRUS AG REFERENCE RANGE: NEGATIVE - Problem List (1) Acute exacerbation of chronic obstructive airways disease SNOMED Code(s): 751606201 ICD Code: J44.1 - CHRONIC OBSTRUCTIVE PULMONARY DISEASE W (ACUTE) EX ACERBATION Status: Acute Current Visit: No (2) Bronchospasm with bronchitis, acute SNOMED Code(s): 12875306 ICD Code: J20.9 - ACUTE BRONCHITIS, UNSPECIFIED Status: Acute Current Visit: No (3) Diabetes mellitus type 2 in obese SNOMED Code(s): 48586648 ICD Code: E11.9 - TYPE 2 DIABETES MELLITUS WITHOUT COMPLICATIONS; E66.9 - OBESITY, UNSPECIFIED Status: Acute Current Visit: No (4) Dyslipidemia SNOMED Code(s): 228451732 ICD Code: E78.5 - HYPERLIPIDEMIA, UNSPECIFIED Status: Chronic Current Visit: No (5) History of - hypertension, HTN, High Blood Pressure SNOMED Code(s): 339011551 ICD Code: Z86.79 - PERSONAL HISTORY OF OTHER DISEASES OF THE CIRCULATORY SYSTEM Status: Chronic Current Visit: No (6) Seizure disorder SNOMED Code(s): 844318781 ICD Code: G40.909 - EPILEPSY, UNSP, NOT INTRACTABLE, WITHOUT STATUS EPILEPTICUS Status: Chronic Current Visit: No Problem List Initiated/Reviewed/Updated: Yes Orders Last 24hrs: Active Orders 24 hr Category Date Time Status Admission Diagnosis [ADT] Routine ADT 11/14/20 17:40 Ordered Admission Status [Patient Status] [ADT] Routine ADT 11/14/20 17:40 Active Oxygen Therapy [RC] PRN Care 11/14/20 19:07 Active RT Aerosol Therapy [RC] ASDIRECTED Care 11/14/20 15:53 Active RT Aerosol Therapy [RC] ASDIRECTED Care 11/14/20 15:55 Active RT Aerosol Therapy [RC] ASDIRECTED Care 11/14/20 18:58 Active RT Post Treatment Assessment [RC] Click to Edit Care 11/14/20 19:05 Active RT Pre-Treatment Assessment [RC] Click to Edit Care 11/14/20 19:05 Active Up With Assistance [RC] ASDIRECTED Care 11/14/20 19:07 Active VTE/DVT Education [RC] PER UNIT ROUTINE Care 11/14/20 19:07 Active Vital Signs [RC] Q4H Care 11/14/20 19:07 Active Regular Diet [DIET] Diet 11/14/20 Breakfast Active BASIC METABOLIC PANEL,BMP [CHEM] AM Lab 11/15/20 05:11 Ordered CBC W/O DIFF,HEMOGRAM [HEME] AM Lab 11/15/20 05:11 Ordered CULTURE BLOOD [BC] Stat Lab 11/14/20 16:08 Results CULTURE BLOOD [BC] Stat Lab 11/14/20 16:14 Received CULTURE SPUTUM + SMEAR [RM] Routine Lab 11/14/20 18:59 Ordered UA RFX SCOTT AND CULT IF INDIC [URIN] Stat Lab 11/14/20 15:52 Ordered Albuterol/Ipratropium [DuoNeb 3.0-0.5 MG/3 ML] Med 11/14/20 18:59 Ordered 3 ml NEB Q4HRRT PRN Albuterol/Ipratropium [DuoNeb 3.0-0.5 MG/3 ML] Med 11/15/20 01:00 Ordered 3 ml NEB Q6HRRT Budesonide [Pulmicort] Med 11/15/20 07:00 Active 0.5 mg NEB BIDRT Docusate Sodium [Colace] Med 11/14/20 19:07 Ordered 100 mg PO BID PRN HCTZ/Triamterene [Maxzide 25-37.5 MG] Med 11/15/20 09:00 Ordered 0.5 each PO DAILY Heparin Sodium Med 11/14/20 22:00 Ordered 5,000 units SUBCUT Q8HR Levofloxacin/Dextrose 5%-Water [Levaquin in D5W 750 MG/ Med 11/15/20 19:00 Active 150 ML] 750 mg Premix Bag 1 bag IV Q24H Ondansetron [Zofran ODT] Med 11/14/20 19:07 Ordered 4 mg PO Q4H PRN Phenytoin Med 11/15/20 11:00 Ordered 100 mg PO ACLUN Phenytoin Med 11/14/20 21:00 Ordered 200 mg PO BEDTIME Phenytoin Med 11/15/20 09:00 Ordered 200 mg PO QAM Simvastatin [Zocor] Med 11/14/20 21:00 Ordered 20 mg PO BEDTIME Sodium Chloride 0.9% [Saline Flush] Med 11/14/20 15:52 Active 10 ml FLUSH ASDIRECTED PRN Temazepam [Restoril] Med 11/14/20 19:07 Ordered 15 mg PO BEDTIME PRN Tiotropium [Spiriva HandiHaler] Med 11/15/20 09:00 Ordered 18 mcg INH DAILY methylPREDNISolone Sod Succ [Solu-MEDROL] Med 11/15/20 00:00 Active 40 mg IVPUSH Q8H Blood Culture x2 Reflex Set [OM.PC] Stat Oth 11/14/20 15:51 Ordered Isolation [COMM] Routine Oth 11/14/20 15:53 Active Peripheral IV Insertion Adult [OM.PC] Stat Oth 11/14/20 15:52 Ordered Resuscitation Status Routine Resus Stat 11/14/20 19:07 Ordered Medication Orders Albuterol/Ipratropium (Albuterol/Ipratropium 3.0-0.5 Mg/3 Ml Neb Soln) 3 ml NEB Q6HRRT NEO Albuterol/Ipratropium (Albuterol/Ipratropium 3.0-0.5 Mg/3 Ml Neb Soln) 3 ml NEB Q4HRRT PRN PRN Reason: sob Budesonide (Budesonide 0.5 Mg/2 Ml Neb Susp) 0.5 mg NEB BIDRT NEO Levofloxacin/Dextrose 750 mg/ (Premix) 150 mls @ 100 mls/hr IV Q24H NEO Methylprednisolone Sodium Succinate (Methylprednisolone Sodium Succinate 40 Mg/1 Ml Sdv) 40 mg IVPUSH Q8H NEO Sodium Chloride (Sodium Chloride 0.9% 10 Ml Syringe) 10 ml FLUSH ASDIRECTED PRN PRN Reason: Keep Vein Open Last Admin: 11/14/20 16:33 Dose: 10 ml Documented by: TAISHA Assessment/Plan Comment:: History of COPD, no home oxygen use, diabetes, seizure disorder, dyslipidemia Recently treated for COPD with tapering steroids, azithromycin Presented with 1 day history of shortness of breath Associated with cough and small amount of sputum, fever, no sick contact no leg swelling Shortness of breath has been worsening during the day Shortness of breath Acute hypoxemic respiratory failure We'll supplement oxygen as needed Acute COPD Treat with Solu-Medrol Continue Spiriva Scheduled and as needed DuoNeb Pulmicort nebulizers No apparent pneumonia on chest x-ray Possible upper respiratory tract infection Obtain blood culture Obtain sputum culture Empirical treatment with levofloxacin cxr was questioning chf, acut eexacerbation clinically has no edema will get bnp will give a dose of lasix follow clinically Diabetes Hold metformin Follow blood sugars use supplemental insulin as needed might need long-acting insulin since the patient will be on steroids Hypertension Continue hydrochlorothiazide, triamterene History of seizure disorder Continue phenytoin Dyslipidemia Resume statin DVT prophylaxis with subcutaneous heparin Discussed CODE STATUS Patient elected full CODE STATUS
[2020-11-14] MEDS ORDERED: Phenytoin 100 MG Cap.ER PO SCH (21:00)
[2020-11-14] MEDS: Simvastatin 10 MG Tab PO SCH (21:32)
[2020-11-14] MEDS: Heparin Sodium 5,000 Units/ML Vial SUBCUT SCH (21:33)
[2020-11-14] MEDS: Insulin Lispro 100 Units/ML 3 ML Vial SUBCUT SCH (21:33)
[2020-11-15] MEDS: Sodium Chloride 0.9% 10 ML Syringe FLUSH PRN ×2 (00:19→19:37)
[2020-11-15] MEDS: Albuterol/Ipratropium 3.0-0.5 MG/3 ML Neb Soln NEB SCH ×6 (00:19→23:12)
[2020-11-15] MEDS: methylPREDNISolone Sodium Succinate 40 MG/1 ML SDV IVPUSH SCH ×4 (00:19→23:17)
[2020-11-15] MEDS: Heparin Sodium 5,000 Units/ML Vial SUBCUT SCH ×3 (05:38→21:36)
[2020-11-15 06:45] LABS: ANION GAP 11.3 mEq/L (7-13); CHLORIDE,CL 102 mmol/L (98-107); SODIUM,NA 139 mmol/L (136-145)
[2020-11-15] MEDS: Budesonide 0.5 MG/2 ML Neb Susp NEB SCH ×2 (07:11→18:13)
--- NOTE | 2020-11-15 08:30 | PCM.PN ---
- General Info Date of Service: 11/15/20 Admission Dx/Problem (Free Text): COPD exacerbation. Subjective Update: Overall Mrs. Sands feel a little better today. She is still somewhat short of breath and not back to her baseline - Patient Data Vitals - Most Recent: Last Vital Signs Temp 95.0 F L 11/15/20 07:25 Pulse 76 11/15/20 07:25 Resp 20 11/15/20 07:25 BP 106/57 L 11/15/20 07:25 Pulse Ox 93 L 11/15/20 07:25 Weight - Most Recent: 224 lb I&O - Last 24 Hours: Intake & Output 11/14/20 11/15/20 11/15/20 22:59 06:59 14:59 Intake Total 910 400 Output Total 300 Balance 610 400 Lab Results Last 24 Hours: Laboratory Results - last 24 hr 11/14/20 11/14/20 11/14/20 Range/Units 15:57 16:08 16:14 WBC 16.2 H (5.0-10.0) 10^3/uL RBC 4.56 (4.2-5.4) 10^6/uL Hgb 13.7 (12.0-16.0) g/dL Hct 42.0 (37.0-47.0) % MCV 92.1 (80-100) fL MCH 30.0 (27.0-34.0) pg MCHC 32.6 L (33.0-35.0) g/dL Plt Count 314 (150-450) 10^3/uL Neut % (Auto) 72.8 (42.2-75.2) % Lymph % (Auto) 18.6 L (20.5-50.1) % Gray % (Auto) 7.0 (2-8) % Eos % (Auto) 1.5 (1.0-3.0) % Baso % (Auto) 0.1 (0.0-1.0) % Add Manual Diff Yes Neutrophils % (Manual) 71 (42-75) % Band Neutrophils % 5 % Lymphocytes % (Manual) 23 (20-50) % Monocytes % (Manual) 1 L (2-8) % ABG pH (7.35-7.45) ABG pCO2 (35-45) mmHg ABG pO2 (70-100) mmHg ABG HCO3 (22-26) mmol/L ABG O2 Saturation (95-100) % ABG Base Excess ((-2)-(+3)) mmol/L Phillip Test O2 Delivery Device Sodium 139 (136-145) mmol/L Potassium 3.9 (3.5-5.1) mmol/L Chloride 100 (98-107) mmol/L Carbon Dioxide 29 (21-32) mmol/L Anion Gap 13.9 H (7-13) mEq/L BUN 15 (7-18) mg/dL Creatinine 0.84 (0.55-1.02) mg/dL Est Cr Clr Drug Dosing TNP Estimated GFR (MDRD) > 60 BUN/Creatinine Ratio 17.9 (No establ ref range) Glucose 101 H (70-99) mg/dL POC Glucose (70-99) mg/dL Lactic Acid (0.4-2.0) mmol/L Calcium 8.3 L (8.5-10.1) mg/dL Total Bilirubin 0.2 (0.2-1.0) mg/dL AST 25 (15-37) U/L ALT 40 (14-59) U/L Alkaline Phosphatase 84 (46-116) U/L Troponin I High Sens 4 (<=51) pg/mL C-Reactive Protein 11.7 H (0.0-0.9) mg/dL B-Natriuretic Peptide 6 (0-100) pg/ml Total Protein 7.9 (6.4-8.2) g/dL Albumin 2.9 L (3.4-5.0) g/dL Globulin 5.0 Albumin/Globulin Ratio 0.58 Urine Color (YELLOW) Urine Appearance (CLEAR) Urine pH (5.0-9.0) Ur Specific [place] (1.005-1.030) Urine Protein (NEGATIVE) Urine Glucose (UA) (NEGATIVE) Urine Ketones (NEGATIVE) Urine Occult Blood (NEGATIVE) Urine Nitrite (NEGATIVE) Urine Bilirubin (NEGATIVE) Urine Urobilinogen (0.2-1.0) mg/dL Ur Leukocyte Esterase (NEGATIVE) Urine RBC (0-5) /HPF Urine WBC (0-5/HPF) /HPF Ur Epithelial Cells (NOT SEEN) /HPF Urine Bacteria (0-FEW/HPF) /HPF SARS-CoV-2 RNA (JUSTIN) Negative (NEGATIVE) 11/14/20 11/14/2011/14/21 Range/Units 16:14 16:16 20:36 WBC (5.0-10.0) 10^3/uL RBC (4.2-5.4) 10^6/uL Hgb (12.0-16.0) g/dL Hct (37.0-47.0) % MCV (80-100) fL MCH (27.0-34.0) pg MCHC (33.0-35.0) g/dL Plt Count (150-450) 10^3/uL Neut % (Auto) (42.2-75.2) % Lymph % (Auto) (20.5-50.1) % Gray % (Auto) (2-8) % Eos % (Auto) (1.0-3.0) % Baso % (Auto) (0.0-1.0) % Add Manual Diff Neutrophils % (Manual) (42-75) % Band Neutrophils % % Lymphocytes % (Manual) (20-50) % Monocytes % (Manual) (2-8) % ABG pH 7.38 (7.35-7.45) ABG pCO2 49 H (35-45) mmHg ABG pO2 89 (70-100) mmHg ABG HCO3 28.3 H (22-26) mmol/L ABG O2 Saturation 97 (95-100) % ABG Base Excess 3 ((-2)-(+3)) mmol/L Phillip Test Performed O2 Delivery Device Nasal cannula Sodium (136-145) mmol/L Potassium (3.5-5.1) mmol/L Chloride (98-107) mmol/L Carbon Dioxide (21-32) mmol/L Anion Gap (7-13) mEq/L BUN (7-18) mg/dL Creatinine (0.55-1.02) mg/dL Est Cr Clr Drug Dosing Estimated GFR (MDRD) BUN/Creatinine Ratio (No establ ref range) Glucose (70-99) mg/dL POC Glucose (70-99) mg/dL Lactic Acid 1.2 (0.4-2.0) mmol/L Calcium (8.5-10.1) mg/dL Total Bilirubin (0.2-1.0) mg/dL AST (15-37) U/L ALT (14-59) U/L Alkaline Phosphatase (46-116) U/L Troponin I High Sens (<=51) pg/mL C-Reactive Protein (0.0-0.9) mg/dL B-Natriuretic Peptide (0-100) pg/ml Total Protein (6.4-8.2) g/dL Albumin (3.4-5.0) g/dL Globulin Albumin/Globulin Ratio Urine Color Yellow (YELLOW) Urine Appearance Clear (CLEAR) Urine pH 6.0 (5.0-9.0) Ur Specific [place] 1.025 (1.005-1.030) Urine Protein Negative (NEGATIVE) Urine Glucose (UA) Negative (NEGATIVE) Urine Ketones Negative (NEGATIVE) Urine Occult Blood Negative (NEGATIVE) Urine Nitrite Negative (NEGATIVE) Urine Bilirubin Negative (NEGATIVE) Urine Urobilinogen 0.2 (0.2-1.0) mg/dL Ur Leukocyte Esterase Trace H (NEGATIVE) Urine RBC 0-5 (0-5) /HPF Urine WBC 0-5 (0-5/HPF) /HPF Ur Epithelial Cells Few (NOT SEEN) /HPF Urine Bacteria Few (0-FEW/HPF) /HPF SARS-CoV-2 RNA (JUSTIN) (NEGATIVE) 11/14/20 11/15/20 11/15/20 Range/Units 20:48 05:50 05:50 WBC 11.5 H (5.0-10.0) 10^3/uL RBC 4.49 (4.2-5.4) 10^6/uL Hgb 13.4 (12.0-16.0) g/dL Hct 41.6 (37.0-47.0) % MCV 92.7 (80-100) fL MCH 29.8 (27.0-34.0) pg MCHC 32.2 L (33.0-35.0) g/dL Plt Count 322 (150-450) 10^3/uL Neut % (Auto) (42.2-75.2) % Lymph % (Auto) (20.5-50.1) % Gray % (Auto) (2-8) % Eos % (Auto) (1.0-3.0) % Baso % (Auto) (0.0-1.0) % Add Manual Diff Neutrophils % (Manual) (42-75) % Band Neutrophils % % Lymphocytes % (Manual) (20-50) % Monocytes % (Manual) (2-8) % ABG pH (7.35-7.45) ABG pCO2 (35-45) mmHg ABG pO2 (70-100) mmHg ABG HCO3 (22-26) mmol/L ABG O2 Saturation (95-100) % ABG Base Excess ((-2)-(+3)) mmol/L Phillip Test O2 Delivery Device Sodium 139 (136-145) mmol/L Potassium 4.3 (3.5-5.1) mmol/L Chloride 102 (98-107) mmol/L Carbon Dioxide 30 (21-32) mmol/L Anion Gap 11.3 (7-13) mEq/L BUN 11 (7-18) mg/dL Creatinine 0.58 (0.55-1.02) mg/dL Est Cr Clr Drug Dosing 74.44 Estimated GFR (MDRD) > 60 BUN/Creatinine Ratio (No establ ref range) Glucose 154 H (70-99) mg/dL POC Glucose 284 H (70-99) mg/dL Lactic Acid (0.4-2.0) mmol/L Calcium 8.5 (8.5-10.1) mg/dL Total Bilirubin (0.2-1.0) mg/dL AST (15-37) U/L ALT (14-59) U/L Alkaline Phosphatase (46-116) U/L Troponin I High Sens (<=51) pg/mL C-Reactive Protein (0.0-0.9) mg/dL B-Natriuretic Peptide (0-100) pg/ml Total Protein (6.4-8.2) g/dL Albumin (3.4-5.0) g/dL Globulin Albumin/Globulin Ratio Urine Color (YELLOW) Urine Appearance (CLEAR) Urine pH (5.0-9.0) Ur Specific [place] (1.005-1.030) Urine Protein (NEGATIVE) Urine Glucose (UA) (NEGATIVE) Urine Ketones (NEGATIVE) Urine Occult Blood (NEGATIVE) Urine Nitrite (NEGATIVE) Urine Bilirubin (NEGATIVE) Urine Urobilinogen (0.2-1.0) mg/dL Ur Leukocyte Esterase (NEGATIVE) Urine RBC (0-5) /HPF Urine WBC (0-5/HPF) /HPF Ur Epithelial Cells (NOT SEEN) /HPF Urine Bacteria (0-FEW/HPF) /HPF SARS-CoV-2 RNA (JUSTIN) (NEGATIVE) 11/15/20 Range/Units 06:59 WBC (5.0-10.0) 10^3/uL RBC (4.2-5.4) 10^6/uL Hgb (12.0-16.0) g/dL Hct (37.0-47.0) % MCV (80-100) fL MCH (27.0-34.0) pg MCHC (33.0-35.0) g/dL Plt Count (150-450) 10^3/uL Neut % (Auto) (42.2-75.2) % Lymph % (Auto) (20.5-50.1) % Gray % (Auto) (2-8) % Eos % (Auto) (1.0-3.0) % Baso % (Auto) (0.0-1.0) % Add Manual Diff Neutrophils % (Manual) (42-75) % Band Neutrophils % % Lymphocytes % (Manual) (20-50) % Monocytes % (Manual) (2-8) % ABG pH (7.35-7.45) ABG pCO2 (35-45) mmHg ABG pO2 (70-100) mmHg ABG HCO3 (22-26) mmol/L ABG O2 Saturation (95-100) % ABG Base Excess ((-2)-(+3)) mmol/L Phillip Test O2 Delivery Device Sodium (136-145) mmol/L Potassium (3.5-5.1) mmol/L Chloride (98-107) mmol/L Carbon Dioxide (21-32) mmol/L Anion Gap (7-13) mEq/L BUN (7-18) mg/dL Creatinine (0.55-1.02) mg/dL Est Cr Clr Drug Dosing Estimated GFR (MDRD) BUN/Creatinine Ratio (No establ ref range) Glucose (70-99) mg/dL POC Glucose 145 H (70-99) mg/dL Lactic Acid (0.4-2.0) mmol/L Calcium (8.5-10.1) mg/dL Total Bilirubin (0.2-1.0) mg/dL AST (15-37) U/L ALT (14-59) U/L Alkaline Phosphatase (46-116) U/L Troponin I High Sens (<=51) pg/mL C-Reactive Protein (0.0-0.9) mg/dL B-Natriuretic Peptide (0-100) pg/ml Total Protein (6.4-8.2) g/dL Albumin (3.4-5.0) g/dL Globulin Albumin/Globulin Ratio Urine Color (YELLOW) Urine Appearance (CLEAR) Urine pH (5.0-9.0) Ur Specific Morton (1.005-1.030) Urine Protein (NEGATIVE) Urine Glucose (UA) (NEGATIVE) Urine Ketones (NEGATIVE) Urine Occult Blood (NEGATIVE) Urine Nitrite (NEGATIVE) Urine Bilirubin (NEGATIVE) Urine Urobilinogen (0.2-1.0) mg/dL Ur Leukocyte Esterase (NEGATIVE) Urine RBC (0-5) /HPF Urine WBC (0-5/HPF) /HPF Ur Epithelial Cells (NOT SEEN) /HPF Urine Bacteria (0-FEW/HPF) /HPF SARS-CoV-2 RNA (JUSTIN) (NEGATIVE) Scott Results Last 24 Hours: Microbiology 11/14/20 16:08 Anaerobic Blood Culture - Final Blood - Venous - Iv Start 11/14/20 15:57 Influenza Type A Antigen Screen - Final Nasal, Unspecified NEGATIVE INFLUENZA A VIRUS AG REFERENCE RANGE: NEGATIVE Influenza Type B Antigen Screen - Final NEGATIVE INFLUENZA B VIRUS AG REFERENCE RANGE: NEGATIVE Med Orders - Current: Current Medications Albuterol/Ipratropium (Albuterol/Ipratropium 3.0-0.5 Mg/3 Ml Neb Soln) 3 ml NEB Q6HRRT REPLACED BY [facility] Last Admin: 11/15/20 07:10 Dose: 3 ml Documented by: Albuterol/Ipratropium (Albuterol/Ipratropium 3.0-0.5 Mg/3 Ml Neb Soln) 3 ml NEB Q4HRRT PRN PRN Reason: sob Budesonide (Budesonide 0.5 Mg/2 Ml Neb Susp) 0.5 mg NEB BIDRT REPLACED BY [facility] Last Admin: 11/15/20 07:11 Dose: 0.5 mg Documented by: Dextrose/Water (50% Dextrose In Water 50 Ml Syringe) 50 ml IVPUSH Q15M PRN PRN Reason: Hypoglycemia Docusate Sodium (Docusate Sodium 100 Mg Cap) 100 mg PO BID PRN PRN Reason: Constipation Glucagon (Glucagon,Human Recombinant 1 Mg Vial) 1 mg IM Q15M PRN PRN Reason: Hypoglycemia Heparin Sodium (Porcine) (Heparin Sodium 5,000 Units/Ml Vial) 5,000 units SUBCUT Q8HR REPLACED BY [facility] Last Admin: 11/15/20 05:38 Dose: 5,000 units Documented by: Levofloxacin/Dextrose 750 mg/ (Premix) 150 mls @ 100 mls/hr IV Q24H REPLACED BY [facility] Insulin Human Lispro (Insulin Lispro 100 Units/Ml 3 Ml Vial) 0 unit SUBCUT WITHMEALSANDBED REPLACED BY [facility]; Protocol Last Admin: 11/14/20 21:33 Dose: 3 units Documented by: Methylprednisolone Sodium Succinate (Methylprednisolone Sodium Succinate 40 Mg/1 Ml Sdv) 40 mg IVPUSH Q8H REPLACED BY [facility] Last Admin: 11/15/20 00:19 Dose: 40 mg Documented by: Ondansetron HCl (Ondansetron 4 Mg Tab.Dis) 4 mg PO Q4H PRN PRN Reason: nausea, able to take PO Phenytoin Sodium (Phenytoin 100 Mg Cap.Er) 100 mg PO DAILY@1100 REPLACED BY [facility] Phenytoin Sodium (Phenytoin 100 Mg Cap.Er) 200 mg PO QAM REPLACED BY [facility] Simvastatin (Simvastatin 10 Mg Tab) 20 mg PO BEDTIME REPLACED BY [facility] Last Admin: 11/14/20 21:32 Dose: 20 mg Documented by: Sodium Chloride (Sodium Chloride 0.9% 10 Ml Syringe) 10 ml FLUSH ASDIRECTED PRN PRN Reason: Keep Vein Open Last Admin: 11/15/20 00:19 Dose: 10 ml Documented by: Temazepam (Temazepam 15 Mg Cap) 15 mg PO BEDTIME PRN PRN Reason: Sleep Tiotropium [place] (Tiotropium Inhaler 18 Mcg Inhalation Powder Cap Kit Of 5) 18 mcg INH DAILY REPLACED BY [facility] Triamterene/Hydrochlorothiazide (Hydrochlorothiazide/Triamterene 25-37.5 Tab) 0.5 each PO DAILY REPLACED BY [facility] Discontinued Medications Albuterol (Albuterol 0.083% 2.5 Mg/3 Ml Neb Soln) 10 mg NEB ONETIME ONE Stop: 11/14/20 15:55 Last Admin: 11/14/20 16:03 Dose: 10 mg Documented by: Albuterol/Ipratropium (Albuterol/Ipratropium 3.0-0.5 Mg/3 Ml Neb Soln) 3 ml NEB ONETIME ONE Stop: 11/14/20 15:54 Last Admin: 11/14/20 16:10 Dose: 3 ml Documented by: Magnesium Sulfate 2 gm/ Premix 50 mls @ 100 mls/hr IV ONETIME ONE Stop: 11/14/20 16:24 Last Admin: 11/14/20 16:29 Dose: 100 mls/hr Documented by: Magnesium Sulfate 2 gm/ Premix 50 mls @ 100 mls/hr IV ONETIME ONE Stop: 11/14/20 16:26 Last Admin: 11/14/20 16:22 Dose: Not Given Documented by: Levofloxacin/Dextrose 750 mg/ (Premix) 150 mls @ 100 mls/hr IV ONETIME ONE Stop: 11/14/20 18:58 Last Infusion: 11/14/20 19:42 Dose: Infused Documented by: Methylprednisolone Sodium Succinate (Methylprednisolone Sodium Succinate 125 Mg/2 Ml Sdv) 125 mg IVPUSH ONETIME ONE Stop: 11/14/20 15:54 Last Admin: 11/14/20 16:29 Dose: 125 mg Documented by: Phenytoin Sodium (Phenytoin 100 Mg Cap.Er) 200 mg PO BEDTIME NEO - Exam Physical Findings Comments:: General: This is a pleasantly elderly female who is awake alert no acute distress. She is able speak in full sentences HEENT: Normocephalic, atraumatic, pupils equal round and reactive to light and accommodation. extra ocular muscle are intact. Neck: Supple, no JVD CVS: S1-S2 appreciated. Regular rhythm no murmurs rubs or gallops Lungs: Diminished breath sounds bilaterally with expiratory wheezes on both sides right greater than left. Abdomen: Obese, soft, nontender, bowel sounds are present Extremities: No clubbing, cyanosis or edema. Peripheral pulses 2+ Neuro: Strength is 5 out of 5 bilaterally. Sensations intact. Gait not examined Psych: Stable mood and affect - Patient Data Lab Results Last 24 hrs: Laboratory Results - last 24 hr 11/14/20 11/14/20 11/14/20 Range/Units 15:57 16:08 16:14 WBC 16.2 H (5.0-10.0) 10^3/uL RBC 4.56 (4.2-5.4) 10^6/uL Hgb 13.7 (12.0-16.0) g/dL Hct 42.0 (37.0-47.0) % MCV 92.1 (80-100) fL MCH 30.0 (27.0-34.0) pg MCHC 32.6 L (33.0-35.0) g/dL Plt Count 314 (150-450) 10^3/uL Neut % (Auto) 72.8 (42.2-75.2) % Lymph % (Auto) 18.6 L (20.5-50.1) % Gray % (Auto) 7.0 (2-8) % Eos % (Auto) 1.5 (1.0-3.0) % Baso % (Auto) 0.1 (0.0-1.0) % Add Manual Diff Yes Neutrophils % (Manual) 71 (42-75) % Band Neutrophils % 5 % Lymphocytes % (Manual) 23 (20-50) % Monocytes % (Manual) 1 L (2-8) % ABG pH (7.35-7.45) ABG pCO2 (35-45) mmHg ABG pO2 (70-100) mmHg ABG HCO3 (22-26) mmol/L ABG O2 Saturation (95-100) % ABG Base Excess ((-2)-(+3)) mmol/L Phillip Test O2 Delivery Device Sodium 139 (136-145) mmol/L Potassium 3.9 (3.5-5.1) mmol/L Chloride 100 (98-107) mmol/L Carbon Dioxide 29 (21-32) mmol/L Anion Gap 13.9 H (7-13) mEq/L BUN 15 (7-18) mg/dL Creatinine 0.84 (0.55-1.02) mg/dL Est Cr Clr Drug Dosing TNP Estimated GFR (MDRD) > 60 BUN/Creatinine Ratio 17.9 (No establ ref range) Glucose 101 H (70-99) mg/dL POC Glucose (70-99) mg/dL Lactic Acid (0.4-2.0) mmol/L Calcium 8.3 L (8.5-10.1) mg/dL Total Bilirubin 0.2 (0.2-1.0) mg/dL AST 25 (15-37) U/L ALT 40 (14-59) U/L Alkaline Phosphatase 84 (46-116) U/L Troponin I High Sens 4 (<=51) pg/mL C-Reactive Protein 11.7 H (0.0-0.9) mg/dL B-Natriuretic Peptide 6 (0-100) pg/ml Total Protein 7.9 (6.4-8.2) g/dL Albumin 2.9 L (3.4-5.0) g/dL Globulin 5.0 Albumin/Globulin Ratio 0.58 Urine Color (YELLOW) Urine Appearance (CLEAR) Urine pH (5.0-9.0) Ur Specific Morton (1.005-1.030) Urine Protein (NEGATIVE) Urine Glucose (UA) (NEGATIVE) Urine Ketones (NEGATIVE) Urine Occult Blood (NEGATIVE) Urine Nitrite (NEGATIVE) Urine Bilirubin (NEGATIVE) Urine Urobilinogen (0.2-1.0) mg/dL Ur Leukocyte Esterase (NEGATIVE) Urine RBC (0-5) /HPF Urine WBC (0-5/HPF) /HPF Ur Epithelial Cells (NOT SEEN) /HPF Urine Bacteria (0-FEW/HPF) /HPF SARS-CoV-2 RNA (JUSTIN) Negative (NEGATIVE) 11/14/20 11/14/20 11/14/20 Range/Units 16:14 16:16 20:36 WBC (5.0-10.0) 10^3/uL RBC (4.2-5.4) 10^6/uL Hgb (12.0-16.0) g/dL Hct (37.0-47.0) % MCV (80-100) fL MCH (27.0-34.0) pg MCHC (33.0-35.0) g/dL Plt Count (150-450) 10^3/uL Neut % (Auto) (42.2-75.2) % Lymph % (Auto) (20.5-50.1) % Gray % (Auto) (2-8) % Eos % (Auto) (1.0-3.0) % Baso % (Auto) (0.0-1.0) % Add Manual Diff Neutrophils % (Manual) (42-75) % Band Neutrophils % % Lymphocytes % (Manual) (20-50) % Monocytes % (Manual) (2-8) % ABG pH 7.38 (7.35-7.45) ABG pCO2 49 H (35-45) mmHg ABG pO2 89 (70-100) mmHg ABG HCO3 28.3 H (22-26) mmol/L ABG O2 Saturation 97 (95-100) % ABG Base Excess 3 ((-2)-(+3)) mmol/L Phillip Test Performed O2 Delivery Device Nasal cannula Sodium (136-145) mmol/L Potassium (3.5-5.1) mmol/L Chloride (98-107) mmol/L Carbon Dioxide (21-32) mmol/L Anion Gap (7-13) mEq/L BUN (7-18) mg/dL Creatinine (0.55-1.02) mg/dL Est Cr Clr Drug Dosing Estimated GFR (MDRD) BUN/Creatinine Ratio (No establ ref range) Glucose (70-99) mg/dL POC Glucose (70-99) mg/dL Lactic Acid 1.2 (0.4-2.0) mmol/L Calcium (8.5-10.1) mg/dL Total Bilirubin (0.2-1.0) mg/dL AST (15-37) U/L ALT (14-59) U/L Alkaline Phosphatase (46-116) U/L Troponin I High Sens (<=51) pg/mL C-Reactive Protein (0.0-0.9) mg/dL B-Natriuretic Peptide (0-100) pg/ml Total Protein (6.4-8.2) g/dL Albumin (3.4-5.0) g/dL Globulin Albumin/Globulin Ratio Urine Color Yellow (YELLOW) Urine Appearance Clear (CLEAR) Urine pH 6.0 (5.0-9.0) Ur Specific Morton 1.025 (1.005-1.030) Urine Protein Negative (NEGATIVE) Urine Glucose (UA) Negative (NEGATIVE) Urine Ketones Negative (NEGATIVE) Urine Occult Blood Negative (NEGATIVE) Urine Nitrite Negative (NEGATIVE) Urine Bilirubin Negative (NEGATIVE) Urine Urobilinogen 0.2 (0.2-1.0) mg/dL Ur Leukocyte Esterase Trace H (NEGATIVE) Urine RBC 0-5 (0-5) /HPF Urine WBC 0-5 (0-5/HPF) /HPF Ur Epithelial Cells Few (NOT SEEN) /HPF Urine Bacteria Few (0-FEW/HPF) /HPF SARS-CoV-2 RNA (JUSTIN) (NEGATIVE) 11/14/20 11/15/20 11/15/20 Range/Units 20:48 05:50 05:50 WBC 11.5 H (5.0-10.0) 10^3/uL RBC 4.49 (4.2-5.4) 10^6/uL Hgb 13.4 (12.0-16.0) g/dL Hct 41.6 (37.0-47.0) % MCV 92.7 (80-100) fL MCH 29.8 (27.0-34.0) pg MCHC 32.2 L (33.0-35.0) g/dL Plt Count 322 (150-450) 10^3/uL Neut % (Auto) (42.2-75.2) % Lymph % (Auto) (20.5-50.1) % Gray % (Auto) (2-8) % Eos % (Auto) (1.0-3.0) % Baso % (Auto) (0.0-1.0) % Add Manual Diff Neutrophils % (Manual) (42-75) % Band Neutrophils % % Lymphocytes % (Manual) (20-50) % Monocytes % (Manual) (2-8) % ABG pH (7.35-7.45) ABG pCO2 (35-45) mmHg ABG pO2 (70-100) mmHg ABG HCO3 (22-26) mmol/L ABG O2 Saturation (95-100) % ABG Base Excess ((-2)-(+3)) mmol/L Phillip Test O2 Delivery Device Sodium 139 (136-145) mmol/L Potassium 4.3 (3.5-5.1) mmol/L Chloride 102 (98-107) mmol/L Carbon Dioxide 30 (21-32) mmol/L Anion Gap 11.3 (7-13) mEq/L BUN 11 (7-18) mg/dL Creatinine 0.58 (0.55-1.02) mg/dL Est Cr Clr Drug Dosing 74.44 Estimated GFR (MDRD) > 60 BUN/Creatinine Ratio (No establ ref range) Glucose 154 H (70-99) mg/dL POC Glucose 284 H (70-99) mg/dL Lactic Acid (0.4-2.0) mmol/L Calcium 8.5 (8.5-10.1) mg/dL Total Bilirubin (0.2-1.0) mg/dL AST (15-37) U/L ALT (14-59) U/L Alkaline Phosphatase (46-116) U/L Troponin I High Sens (<=51) pg/mL C-Reactive Protein (0.0-0.9) mg/dL B-Natriuretic Peptide (0-100) pg/ml Total Protein (6.4-8.2) g/dL Albumin (3.4-5.0) g/dL Globulin Albumin/Globulin Ratio Urine Color (YELLOW) Urine Appearance (CLEAR) Urine pH (5.0-9.0) Ur Specific [place] (1.005-1.030) Urine Protein (NEGATIVE) Urine Glucose (UA) (NEGATIVE) Urine Ketones (NEGATIVE) Urine Occult Blood (NEGATIVE) Urine Nitrite (NEGATIVE) Urine Bilirubin (NEGATIVE) Urine Urobilinogen (0.2-1.0) mg/dL Ur Leukocyte Esterase (NEGATIVE) Urine RBC (0-5) /HPF Urine WBC (0-5/HPF) /HPF Ur Epithelial Cells (NOT SEEN) /HPF Urine Bacteria (0-FEW/HPF) /HPF SARS-CoV-2 RNA (JUSTIN) (NEGATIVE) 11/15/20 Range/Units 06:59 WBC (5.0-10.0) 10^3/uL RBC (4.2-5.4) 10^6/uL Hgb (12.0-16.0) g/dL Hct (37.0-47.0) % MCV (80-100) fL MCH (27.0-34.0) pg MCHC (33.0-35.0) g/dL Plt Count (150-450) 10^3/uL Neut % (Auto) (42.2-75.2) % Lymph % (Auto) (20.5-50.1) % Gray % (Auto) (2-8) % Eos % (Auto) (1.0-3.0) % Baso % (Auto) (0.0-1.0) % Add Manual Diff Neutrophils % (Manual) (42-75) % Band Neutrophils % % Lymphocytes % (Manual) (20-50) % Monocytes % (Manual) (2-8) % ABG pH (7.35-7.45) ABG pCO2 (35-45) mmHg ABG pO2 (70-100) mmHg ABG HCO3 (22-26) mmol/L ABG O2 Saturation (95-100) % ABG Base Excess ((-2)-(+3)) mmol/L Phillip Test O2 Delivery Device Sodium (136-145) mmol/L Potassium (3.5-5.1) mmol/L Chloride (98-107) mmol/L Carbon Dioxide (21-32) mmol/L Anion Gap (7-13) mEq/L BUN (7-18) mg/dL Creatinine (0.55-1.02) mg/dL Est Cr Clr Drug Dosing Estimated GFR (MDRD) BUN/Creatinine Ratio (No establ ref range) Glucose (70-99) mg/dL POC Glucose 145 H (70-99) mg/dL Lactic Acid (0.4-2.0) mmol/L Calcium (8.5-10.1) mg/dL Total Bilirubin (0.2-1.0) mg/dL AST (15-37) U/L ALT (14-59) U/L Alkaline Phosphatase (46-116) U/L Troponin I High Sens (<=51) pg/mL C-Reactive Protein (0.0-0.9) mg/dL B-Natriuretic Peptide (0-100) pg/ml Total Protein (6.4-8.2) g/dL Albumin (3.4-5.0) g/dL Globulin Albumin/Globulin Ratio Urine Color (YELLOW) Urine Appearance (CLEAR) Urine pH (5.0-9.0) Ur Specific Morton (1.005-1.030) Urine Protein (NEGATIVE) Urine Glucose (UA) (NEGATIVE) Urine Ketones (NEGATIVE) Urine Occult Blood (NEGATIVE) Urine Nitrite (NEGATIVE) Urine Bilirubin (NEGATIVE) Urine Urobilinogen (0.2-1.0) mg/dL Ur Leukocyte Esterase (NEGATIVE) Urine RBC (0-5) /HPF Urine WBC (0-5/HPF) /HPF Ur Epithelial Cells (NOT SEEN) /HPF Urine Bacteria (0-FEW/HPF) /HPF SARS-CoV-2 RNA (JUSTIN) (NEGATIVE) Result Diagrams: 11/15/20 05:50 11/15/20 05:50 Scott Results Last 24 hrs: Microbiology 11/14/20 16:08 Anaerobic Blood Culture - Final Blood - Venous - Iv Start 11/14/20 15:57 Influenza Type A Antigen Screen - Final Nasal, Unspecified NEGATIVE INFLUENZA A VIRUS AG REFERENCE RANGE: NEGATIVE Influenza Type B Antigen Screen - Final NEGATIVE INFLUENZA B VIRUS AG REFERENCE RANGE: NEGATIVE Sepsis Event Note - Evaluation Sepsis Screening Result: No Definite Risk - Focused Exam Vital Signs: Vital Signs Temp Pulse Resp BP Pulse Ox Pulse Ox 11/15/20 07:25 95.0 F L 76 20 106/57 L 93 L 11/15/20 07:11 77 96 11/15/20 00:26 78 93 L 11/15/20 00:00 98.0 F 79 20 104/53 L 95 - Problem List & Annotations (1) Acute exacerbation of chronic obstructive airways disease SNOMED Code(s): 221073370 Code(s): J44.1 - CHRONIC OBSTRUCTIVE PULMONARY DISEASE W (ACUTE) EXACERBATION Status: Acute Priority: High Current Visit: Yes (2) Morbid obesity SNOMED Code(s): 834128196 Code(s): E66.01 - MORBID (SEVERE) OBESITY DUE TO EXCESS CALORIES Status: Chronic Current Visit: No (3) Seizure disorder SNOMED Code(s): 171129962 Code(s): G40.909 - EPILEPSY, UNSP, NOT INTRACTABLE, WITHOUT STATUS EPILEPTICUS Status: Chronic Current Visit: No (4) Diabetes mellitus type 2 in obese SNOMED Code(s): 93005798 Code(s): E11.9 - TYPE 2 DIABETES MELLITUS WITHOUT COMPLICATIONS; E66.9 - OBESITY, UNSPECIFIED Status: Acute Current Visit: No (5) Acute respiratory failure SNOMED Code(s): 60652426 Code(s): J96.00 - ACUTE RESPIRATORY FAILURE, UNSP W HYPOXIA OR HYPERCAPNIA Status: Acute Current Visit: Yes - Problem List Review Problem List Initiated/Reviewed/Updated: Yes - Plan Plan:: History of COPD, no home oxygen use, diabetes, seizure disorder, dyslipidemia Recently treated for COPD with tapering steroids, azithromycin Presented with 1 day history of shortness of breath Associated with cough and small amount of sputum, fever, no sick contact Acute hypoxemic respiratory failure due to COPD exacerbation. Continue with supplemental oxygen as needed Acute COPD exacerbation Continue with Solu-Medrol, Spiriva Increase the frequency of the scheduled and as needed DuoNeb to Q4 and Q2hrs prn Pulmicort nebulizers Empirical treatment with levofloxacin COVID 19 negative and negative CXR findings to suggest a pneumonia. T2DM Hold metformin Follow blood sugars use supplemental insulin as needed might need long-acting insulin since the patient will be on steroids Hypertension Continue hydrochlorothiazide, triamterene Stable History of seizure disorder Continue phenytoin Dyslipidemia Resume statin DVT prophylaxis subcutaneous heparin Full code STATUS
[2020-11-15] MEDS: Tiotropium Inhaler 18 MCG Inhalation Powder Cap Kit of 5 INH SCH (08:58)
[2020-11-15] MEDS: Phenytoin 100 MG Cap.ER PO SCH ×2 (08:59→11:00)
[2020-11-15] MEDS: Hydrochlorothiazide/Triamterene 25-37.5 Tab PO SCH (08:59)
[2020-11-15] MEDS: Insulin Lispro 100 Units/ML 3 ML Vial SUBCUT SCH ×4 (09:08→21:36)
[2020-11-15] MEDS ORDERED: Albuterol/Ipratropium 3.0-0.5 MG/3 ML Neb Soln NEB PRN (09:23)
[2020-11-15] MEDS ORDERED: Levofloxacin/Dextrose 5%-Water 750 MG in Premix Bag 1 BAG IV SCH (19:00)
[2020-11-15] MEDS ORDERED: diphenhydrAMINE 25 MG Tab PO PRN (20:24)
[2020-11-15] MEDS: Simvastatin 10 MG Tab PO SCH (21:36)
[2020-11-16] MEDS: Albuterol/Ipratropium 3.0-0.5 MG/3 ML Neb Soln NEB SCH ×3 (03:02→15:38)
[2020-11-16] MEDS: Heparin Sodium 5,000 Units/ML Vial SUBCUT SCH ×2 (05:44→14:20)
[2020-11-16] MEDS: Insulin Lispro 100 Units/ML 3 ML Vial SUBCUT SCH ×2 (08:01→12:09)
[2020-11-16] MEDS: methylPREDNISolone Sodium Succinate 40 MG/1 ML SDV IVPUSH SCH (08:11)
[2020-11-16] MEDS: Budesonide 0.5 MG/2 ML Neb Susp NEB SCH (08:41)
[2020-11-16] MEDS: Phenytoin 100 MG Cap.ER PO SCH ×2 (09:15→11:40)
[2020-11-16] MEDS: Hydrochlorothiazide/Triamterene 25-37.5 Tab PO SCH (09:16)
[2020-11-16] MEDS: Tiotropium Inhaler 18 MCG Inhalation Powder Cap Kit of 5 INH SCH (09:17)
--- NOTE | 2020-11-16 10:20 | PCM.DCSUM1 ---
Discharge Summary - Hospital Course Free Text/Narrative:: Mr. Sands is a 65 y/o female with a h/o Obesity, T2DM, COPD who was admitted with SOB, cough and hypoxemia. She was diagnoses with an acuteN COPD exacerbation. She received treatment with solumedrol, nebs, O2 supplementation and IV levaquin. Her conditions gradually improved. She had a reaction to levaquin which prompted stopping the abx. On 11/16/20 she felt good and was able to maintain her sats > 90% on room air. She was evaluated by respiratory therapy for a home oxygen eval. Her resting room air saturation was 89-93%. Her lowest room air oxygen sat was 86% while walking. The post recovery 1 minute oxygen saturation was 90%. She was recommended to use 4L oxygen by nasal cannula with activity Pt was discharged home in a stable condition Diet : diabetic diet Activity : as tolerated. Pt is to follow up with her PCP in 1-2 wks Discharge time was 40 minutes Physical Exam General: obese elderly female. Looks and feels much better than yesterday CVS: S1S2 appreciated. RRR lungs: exp wheezes bilaterally but with better air movement than yesterday pa: soft, nontender. obese. bowel sounds present ext: no clubbing, cyanosis or edema Neuro: no focal deficits. Moves all extremities. Ambulates independently. - Discharge Data Discharge Date: 11/16/20 Discharge Disposition: Home, Self-Care 01 Condition: Good - Referral to Home Health Primary Care Physician: PCP None - Discharge Diagnosis/Problem(s) (1) Acute respiratory failure SNOMED Code(s): 12275195 ICD Code: J96.00 - ACUTE RESPIRATORY FAILURE, UNSP W HYPOXIA OR HYPERCAPNIA Status: Acute Current Visit: Yes (2) Acute exacerbation of chronic obstructive airways disease SNOMED Code(s): 665151082 ICD Code: J44.1 - CHRONIC OBSTRUCTIVE PULMONARY DISEASE W (ACUTE) EXACERBATION Status: Acute Priority: High Current Visit: Yes (3) Morbid obesity SNOMED Code(s): 115645904 ICD Code: E66.01 - MORBID (SEVERE) OBESITY DUE TO EXCESS CALORIES Status: Chronic Current Visit: No (4) Seizure disorder SNOMED Code(s): 254826934 ICD Code: G40.909 - EPILEPSY, UNSP, NOT INTRACTABLE, WITHOUT STATUS EPILEPTICUS Status: Chronic Current Visit: No (5) Diabetes mellitus type 2 in obese SNOMED Code(s): 42152180 ICD Code: E11.9 - TYPE 2 DIABETES MELLITUS WITHOUT COMPLICATIONS; E66.9 - OBESITY, UNSPECIFIED Status: Acute Current Visit: No - Patient Instructions Diet: Diabetic Diet Activity: As Tolerated - Discharge Plan *PRESCRIPTION DRUG MONITORING PROGRAM REVIEWED*: Not Applicable *COPY OF PRESCRIPTION DRUG MONITORING REPORT IN PATIENT LILIANA: Not Applicable Prescriptions/Med Rec: predniSONE [Prednisone] 10 mg PO DAILY #14 tablet Home Medications: Home Meds Phenytoin Sodium Extended [Dilantin] 100 mg PO ACLUN 03/20/13 [History] Simvastatin [Zocor] 20 mg PO BEDTIME 03/20/13 [History] Tiotropium [Spiriva HandiHaler] 18 mcg INH DAILY 03/20/13 [History] Fluticasone/Salmeterol [Advair 500-50] 1 puff INH BID 04/05/13 [History] HCTZ/Triamterene [Maxzide 25-37.5 MG] 0.5 tab PO DAILY 04/05/13 [History] Phenytoin Sodium Extended [Dilantin] 200 mg PO QAM 04/05/13 [History] Acetaminophen [Tylenol Extra Strength] 500 mg PO Q6H PRN 01/11/17 [History] metFORMIN [Glucophage XR] 500 mg PO BIDMEALS 01/11/17 [History] Albuterol/Ipratropium [DuoNeb 3.0-0.5 MG/3 ML] 3 ml IH QID PRN 11/06/20 [History] predniSONE [Prednisone] 10 mg PO DAILY #14 tablet 11/16/20 [Rx] Oxygen Flow Rate (L/min): 4 (with activity) Forms: ED Department Discharge Referrals: Lanette Arndt MD [Physician] - Aida Little NP [Ordering Only Provider] - - Discharge Summary/Plan Comment DC Time >30 min.: Yes Total # of Minutes for Discharge Time: 40 minutes - Patient Data Vitals - Most Recent: Last Vital Signs Temp 97.7 F 11/16/20 08:00 Pulse 82 11/16/20 08:00 Resp 20 11/16/20 08:00 BP 122/63 11/16/20 08:00 Pulse Ox 92 L 11/16/20 08:00 Weight - Most Recent: 224 lb I&O - Last 24 hours: Intake & Output 11/15/20 11/16/20 11/16/20 22:59 06:59 14:59 Intake Total 1050 500 480 Balance 1050 500 480 Lab Results - Last 24 hrs: Laboratory Results - last 24 hr 11/15/20 11/15/20 11/15/20 Range/Units 10:57 16:58 20:55 POC Glucose 164 H 121 H 167 H (70-99) mg/dL 11/16/20 Range/Units 07:45 POC Glucose 103 H (70-99) mg/dL NINFA Results - Last 24 hrs: Microbiology 11/14/20 21:11 Gram Stain - Final Sputum - Expectorated Sputum Culture - Preliminary NORMAL RESPIRATORY GUSTAVO 1 DAY 11/14/20 16:14 Aerobic Blood Culture - Preliminary Blood - Venous - Iv Start NO GROWTH AFTER 1 DAY Anaerobic Blood Culture - Preliminary NO GROWTH AFTER 1 DAY 11/14/20 16:08 Aerobic Blood Culture - Preliminary Blood - Venous - Iv Start NO GROWTH AFTER 1 DAY Anaerobic Blood Culture - Final Med Orders - Current: Current Medications Albuterol/Ipratropium (Albuterol/Ipratropium 3.0-0.5 Mg/3 Ml Neb Soln) 3 ml NEB Q2H PRN PRN Reason: sob Albuterol/Ipratropium (Albuterol/Ipratropium 3.0-0.5 Mg/3 Ml Neb Soln) 3 ml NEB Q4HRRT [facility] Last Admin: 11/16/20 08:41 Dose: 3 ml Documented by: Budesonide (Budesonide 0.5 Mg/2 Ml Neb Susp) 0.5 mg NEB BIDRT [facility] Last Admin: 11/16/20 08:41 Dose: 0.5 mg Documented by: Dextrose/Water (50% Dextrose In Water 50 Ml Syringe) 50 ml IVPUSH Q15M PRN PRN Reason: Hypoglycemia Diphenhydramine HCl (Diphenhydramine 25 Mg Tab) 12.5 mg PO Q6H PRN PRN Reason: Itching Last Admin: 11/15/20 20:41 Dose: 12.5 mg Documented by: Docusate Sodium (Docusate Sodium 100 Mg Cap) 100 mg PO BID PRN PRN Reason: Constipation Glucagon (Glucagon,Human Recombinant 1 Mg Vial) 1 mg IM Q15M PRN PRN Reason: Hypoglycemia Heparin Sodium (Porcine) (Heparin Sodium 5,000 Units/Ml Vial) 5,000 units SUBCUT Q8HR [facility] Last Admin: 11/16/20 05:44 Dose: 5,000 units Documented by: Insulin Human Lispro (Insulin Lispro 100 Units/Ml 3 Ml Vial) 0 unit SUBCUT WITHMEALSANDBED [facility]; Protocol Last Admin: 11/16/20 08:01 Dose: Not Given Documented by: Methylprednisolone Sodium Succinate (Methylprednisolone Sodium Succinate 40 Mg/1 Ml Sdv) 40 mg IVPUSH Q8H [facility] Last Admin: 11/16/20 08:11 Dose: 40 mg Documented by: Ondansetron HCl (Ondansetron 4 Mg Tab.Dis) 4 mg PO Q4H PRN PRN Reason: nausea, able to take PO Phenytoin Sodium (Phenytoin 100 Mg Cap.Er) 100 mg PO DAILY@1100 [facility] Last Admin: 11/15/20 11:00 Dose: 100 mg Documented by: Phenytoin Sodium (Phenytoin 100 Mg Cap.Er) 200 mg PO QAM [facility] Last Admin: 11/16/20 09:15 Dose: 200 mg Documented by: Simvastatin (Simvastatin 10 Mg Tab) 20 mg PO BEDTIME [facility] Last Admin: 11/15/20 21:36 Dose: 20 mg Documented by: Sodium Chloride (Sodium Chloride 0.9% 10 Ml Syringe) 10 ml FLUSH ASDIRECTED PRN PRN Reason: Keep Vein Open Last Admin: 11/15/20 19:37 Dose: 10 ml Documented by: Temazepam (Temazepam 15 Mg Cap) 15 mg PO BEDTIME PRN PRN Reason: Sleep Tiotropium Waucoma (Tiotropium Inhaler 18 Mcg Inhalation Powder Cap Kit Of 5) 18 mcg INH DAILY [facility] Last Admin: 11/16/20 09:17 Dose: 18 mcg Documented by: Triamterene/Hydrochlorothiazide (Hydrochlorothiazide/Triamterene 25-37.5 Tab) 0.5 each PO DAILY [facility] Last Admin: 11/16/20 09:16 Dose: 0.5 each Documented by: Discontinued Medications Albuterol (Albuterol 0.083% 2.5 Mg/3 Ml Neb Soln) 10 mg NEB ONETIME ONE Stop: 11/14/20 15:55 Last Admin: 11/14/20 16:03 Dose: 10 mg Documented by: Albuterol/Ipratropium (Albuterol/Ipratropium 3.0-0.5 Mg/3 Ml Neb Soln) 3 ml NEB ONETIME ONE Stop: 11/14/20 15:54 Last Admin: 11/14/20 16:10 Dose: 3 ml Documented by: Albuterol/Ipratropium (Albuterol/Ipratropium 3.0-0.5 Mg/3 Ml Neb Soln) 3 ml NEB Q6HRRT [facility] Last Admin: 11/15/20 07:10 Dose: 3 ml Documented by: Albuterol/Ipratropium (Albuterol/Ipratropium 3.0-0.5 Mg/3 Ml Neb Soln) 3 ml NEB Q4HRRT PRN PRN Reason: sob Magnesium Sulfate 2 gm/ Premix 50 mls @ 100 mls/hr IV ONETIME ONE Stop: 11/14/20 16:24 Last Admin: 11/14/20 16:29 Dose: 100 mls/hr Documented by: Magnesium Sulfate 2 gm/ Premix 50 mls @ 100 mls/hr IV ONETIME ONE Stop: 11/14/20 16:26 Last Admin: 11/14/20 16:22 Dose: Not Given Documented by: Levofloxacin/Dextrose 750 mg/ (Premix) 150 mls @ 100 mls/hr IV ONETIME ONE Stop: 11/14/20 18:58 Last Infusion: 11/14/20 19:42 Dose: Infused Documented by: Levofloxacin/Dextrose 750 mg/ (Premix) 150 mls @ 100 mls/hr IV Q24H [facility] Last Admin: 11/15/20 19:37 Dose: 100 mls/hr Documented by: Methylprednisolone Sodium Succinate (Methylprednisolone Sodium Succinate 125 Mg/2 Ml Sdv) 125 mg IVPUSH ONETIME ONE Stop: 11/14/20 15:54 Last Admin: 11/14/20 16:29 Dose: 125 mg Documented by: Phenytoin Sodium (Phenytoin 100 Mg Cap.Er) 200 mg PO BEDTIME [facility]
[2020-11-16 11:46] VITALS: BP 128/71; PULSE 94
== END 2020-11-16 14:50 | disposition home or self-care (01) | DRG 189 ==
LOC: DL.ED 15:25 → DL.MS 17:40 → UNDOADMIN 17:51 → DL.MS 17:51
PROVIDERS: ADMIT Family Medicine; ATTEND Hospitalist
DX: J96.01 Acute respiratory failure with hypoxia (principal); J18.9 Pneumonia, unspecified organism; J44.1 Chronic obstructive pulmonary disease with (acute) exacerbation; J44.0 Chronic obstructive pulmonary disease with (acute) lower respiratory infection; J20.9 Acute bronchitis, unspecified; E66.9 Obesity, unspecified; E11.9 Type 2 diabetes mellitus without complications; E66.01 Morbid (severe) obesity due to excess calories; G40.909 Epilepsy, unspecified, not intractable, without status epilepticus; E78.5 Hyperlipidemia, unspecified; H54.7 Unspecified visual loss; E78.00 Pure hypercholesterolemia, unspecified; I10 Essential (primary) hypertension; G47.30 Sleep apnea, unspecified; M19.90 Unspecified osteoarthritis, unspecified site; Z20.822 Contact with and (suspected) exposure to COVID-19; Z79.52 Long term (current) use of systemic steroids; Z88.1 Allergy status to other antibiotic agents; Z88.0 Allergy status to penicillin; Z87.01 Personal history of pneumonia (recurrent); Z86.19 Personal history of other infectious and parasitic diseases; Z90.49 Acquired absence of other specified parts of digestive tract; Z79.84 Long term (current) use of oral hypoglycemic drugs; Z79.899 Other long term (current) drug therapy
CPT/HCPCS: 36415; 36600; 71045; 80048; 80053; 81001; 82803; 82947; 83605; 83880; 84484; 85025; 85027; 86140; 87040; 87070; 87086; 87205; 87804; 93005; 94640; 96365; 96375; 99285-25; A9270-GY; J1644; J1815-GY; J1956; J2920; J2930; J3475; J7613-GY; J7620-GY; U0002

== ENCOUNTER 2021-08-17 17:11 | Inpatient (IN) | payer MEDICARE, OTHER, MEDICAID ==
[2021-08-17] MEDS ORDERED: methylPREDNISolone Sodium Succinate 125 MG/2 ML SDV IVPUSH ONE (17:24)
[2021-08-17] MEDS ORDERED: Albuterol/Ipratropium 3.0-0.5 MG/3 ML Neb Soln NEB ONE (17:24)
[2021-08-17] MEDS ORDERED: Iopamidol 612 MG/ML 100 ML Bottle IVPUSH ONE (18:02)
[2021-08-17 18:07] LABS: ANION GAP 9.8 mEq/L (7-13); CHLORIDE,CL 100 mmol/L (98-107); SODIUM,NA 138 mmol/L (136-145)
[2021-08-17 18:20] LABS: CORONAVIRUS COVID-19 NAA NEGATIVE (NEGATIVE); RESPIRATORY SYNCYTIAL VIR NAA NEGATIVE (NEGATIVE)
[2021-08-17] MEDS ORDERED: Levofloxacin/Dextrose 5%-Water 750 MG in Premix Bag 1 BAG IV ONE (19:36)
[2021-08-17] MEDS ORDERED: Ondansetron 4 MG/2 ML SDV IVPUSH PRN (20:23)
[2021-08-17] MEDS ORDERED: Sodium Chloride 0.9% 10 ML Syringe FLUSH PRN (20:23)
[2021-08-17] MEDS ORDERED: Acetaminophen 325 MG Tab PO PRN (20:23)
[2021-08-17] MEDS ORDERED: Docusate Sodium 100 MG Cap PO PRN (20:23)
[2021-08-17] MEDS ORDERED: Acetaminophen/HYDROcodone 325-5 MG Tab PO PRN (20:23)
[2021-08-17] MEDS ORDERED: methylPREDNISolone Sodium Succinate 40 MG/1 ML SDV IVPUSH SCH (20:30)
[2021-08-17] MEDS ORDERED: Glucagon,Human Recombinant 1 MG Vial IM PRN (20:52)
[2021-08-17] MEDS ORDERED: 50% Dextrose in Water 50 ML Syringe IVPUSH PRN (20:52)
[2021-08-17] MEDS ORDERED: Insulin Lispro 100 Units/ML 3 ML Vial SUBCUT SCH (21:00)
[2021-08-18] MEDS: methylPREDNISolone Sodium Succinate 40 MG/1 ML SDV IVPUSH SCH ×4 (00:53→17:39)
[2021-08-18 06:49] LABS: ANION GAP 13.9 mEq/L (7-13); CHLORIDE,CL 101 mmol/L (98-107); SODIUM,NA 140 mmol/L (136-145)
[2021-08-18] MEDS: Budesonide 0.5 MG/2 ML Neb Susp NEB SCH ×2 (07:31→18:00)
[2021-08-18] MEDS ORDERED: Albuterol/Ipratropium 3.0-0.5 MG/3 ML Neb Soln NEB PRN (08:25)
[2021-08-18] MEDS ORDERED: Acetaminophen 500 MG Tab PO PRN (08:25)
[2021-08-18] MEDS ORDERED: Albuterol 0.021% 0.63 MG/3 ML Neb Soln NEB PRN (08:35)
[2021-08-18] MEDS: Insulin Lispro 100 Units/ML 3 ML Vial SUBCUT SCH ×3 (08:57→17:48)
[2021-08-18] MEDS ORDERED: Levofloxacin/Dextrose 5%-Water 750 MG in Premix Bag 1 BAG IV SCH (09:00)
[2021-08-18] MEDS: Phenytoin 100 MG Cap.ER PO SCH ×3 (09:31→20:40)
[2021-08-18] MEDS: Hydrochlorothiazide/Triamterene 25-37.5 Tab PO SCH (09:31)
[2021-08-18] MEDS: Enoxaparin 40 MG/0.4 ML Syringe SUBCUT SCH (09:33)
[2021-08-18] MEDS: Tiotropium Inhaler 18 MCG Inhalation Powder Cap Kit of 5 INH SCH (09:39)
[2021-08-18] MEDS: Albuterol/Ipratropium 3.0-0.5 MG/3 ML Neb Soln NEB SCH ×4 (10:22→20:38)
[2021-08-18] MEDS: metFORMIN 500 MG Tab PO SCH (17:39)
[2021-08-18] MEDS: Levofloxacin/Dextrose 5%-Water 750 MG in Premix Bag 1 BAG IV SCH (20:40)
[2021-08-18] MEDS: Simvastatin 10 MG Tab PO SCH (20:40)
[2021-08-19] MEDS: methylPREDNISolone Sodium Succinate 40 MG/1 ML SDV IVPUSH SCH ×4 (00:21→18:00)
[2021-08-19 06:19] LABS: ANION GAP 11.5 mEq/L (7-13); CHLORIDE,CL 101 mmol/L (98-107); SODIUM,NA 140 mmol/L (136-145)
[2021-08-19] MEDS: Budesonide 0.5 MG/2 ML Neb Susp NEB SCH ×2 (07:29→17:01)
[2021-08-19] MEDS: Albuterol/Ipratropium 3.0-0.5 MG/3 ML Neb Soln NEB SCH ×4 (07:29→20:58)
[2021-08-19] MEDS: Insulin Lispro 100 Units/ML 3 ML Vial SUBCUT SCH ×3 (08:53→18:04)
[2021-08-19] MEDS: metFORMIN 500 MG Tab PO SCH ×2 (08:53→18:01)
[2021-08-19] MEDS: Phenytoin 100 MG Cap.ER PO SCH ×3 (08:53→20:57)
[2021-08-19] MEDS: Tiotropium Inhaler 18 MCG Inhalation Powder Cap Kit of 5 INH SCH (08:54)
[2021-08-19] MEDS: Hydrochlorothiazide/Triamterene 25-37.5 Tab PO SCH (08:54)
[2021-08-19] MEDS: Enoxaparin 40 MG/0.4 ML Syringe SUBCUT SCH (08:56)
[2021-08-19] MEDS: Levofloxacin/Dextrose 5%-Water 750 MG in Premix Bag 1 BAG IV SCH (20:56)
[2021-08-19] MEDS: Simvastatin 10 MG Tab PO SCH (20:57)
[2021-08-20] MEDS: methylPREDNISolone Sodium Succinate 40 MG/1 ML SDV IVPUSH SCH ×3 (00:08→11:58)
[2021-08-20 06:58] LABS: ANION GAP 8.9 mEq/L (7-13); CHLORIDE,CL 102 mmol/L (98-107); SODIUM,NA 140 mmol/L (136-145)
[2021-08-20] MEDS: Budesonide 0.5 MG/2 ML Neb Susp NEB SCH (07:44)
[2021-08-20] MEDS: Albuterol/Ipratropium 3.0-0.5 MG/3 ML Neb Soln NEB SCH ×2 (07:44→10:26)
[2021-08-20] MEDS: Hydrochlorothiazide/Triamterene 25-37.5 Tab PO SCH (08:27)
[2021-08-20] MEDS: metFORMIN 500 MG Tab PO SCH (08:27)
[2021-08-20] MEDS: Enoxaparin 40 MG/0.4 ML Syringe SUBCUT SCH (08:27)
[2021-08-20] MEDS: Tiotropium Inhaler 18 MCG Inhalation Powder Cap Kit of 5 INH SCH (08:28)
[2021-08-20] MEDS: Insulin Lispro 100 Units/ML 3 ML Vial SUBCUT SCH ×2 (08:28→12:04)
[2021-08-20] MEDS: Phenytoin 100 MG Cap.ER PO SCH ×2 (08:28→11:15)
[2021-08-20 08:51] VITALS: BP 118/45; PULSE 100
== END 2021-08-20 12:30 | disposition home or self-care (01) | DRG 190 ==
LOC: DL.ED 17:11 → DL.MS 19:41
PROVIDERS: ADMIT Internal Medicine; ATTEND Internal Medicine
DX: J44.0 Chronic obstructive pulmonary disease with (acute) lower respiratory infection (principal); J18.9 Pneumonia, unspecified organism; J44.1 Chronic obstructive pulmonary disease with (acute) exacerbation; G40.909 Epilepsy, unspecified, not intractable, without status epilepticus; G47.30 Sleep apnea, unspecified; M19.90 Unspecified osteoarthritis, unspecified site; E78.5 Hyperlipidemia, unspecified; Z87.891 Personal history of nicotine dependence; I10 Essential (primary) hypertension; E78.00 Pure hypercholesterolemia, unspecified; Z20.822 Contact with and (suspected) exposure to COVID-19; E11.9 Type 2 diabetes mellitus without complications; E66.9 Obesity, unspecified; H54.7 Unspecified visual loss; Z99.81 Dependence on supplemental oxygen; Z88.0 Allergy status to penicillin; Z88.1 Allergy status to other antibiotic agents; Z79.84 Long term (current) use of oral hypoglycemic drugs; Z79.52 Long term (current) use of systemic steroids; Z79.899 Other long term (current) drug therapy; Z28.82 Immunization not carried out because of caregiver refusal; Z68.39 Body mass index [BMI] 39.0-39.9, adult
CPT/HCPCS: 0241U; 36415; 71045; 71260; 80048; 80053; 82947; 83605; 83880; 85025; 86140; 87040; 94060; 94640; 96374; 96375; 99284; 99285-25; A9270-GY; J1650; J1815-GY; J1956; J2920; J2930; J3490; J7620-GY

== ENCOUNTER 2022-02-05 17:31 | Emergency (ER) | payer MEDICARE, MEDICAID ==
[2022-02-05] MEDS ORDERED: Sodium Chloride 0.9% 10 ML Syringe FLUSH PRN (18:56)
[2022-02-05] MEDS ORDERED: Ketorolac 30 MG/ML SDV IVPUSH ONE (18:57)
[2022-02-05] MEDS ORDERED: Albuterol 0.083% 2.5 MG/3 ML Neb Soln NEB ONE (18:58)
[2022-02-05 19:00] VITALS: BP 129/75; PULSE 85
[2022-02-05 19:53] LABS: ANION GAP 11.8 mEq/L (7-13); CHLORIDE,CL 100 mmol/L (98-107); SODIUM,NA 137 mmol/L (136-145)
[2022-02-05 19:55] LABS: ESTIMATED GFR 61 mL/min (>=60)
[2022-02-05] MEDS ORDERED: Azithromycin 250 MG Tab PO ONE (20:42)
== END 2022-02-05 20:58 | disposition home or self-care (01) ==
LOC: DL.ED 17:31
DX: U07.1 COVID-19 (principal); J44.1 Chronic obstructive pulmonary disease with (acute) exacerbation; E78.00 Pure hypercholesterolemia, unspecified; I10 Essential (primary) hypertension; M19.90 Unspecified osteoarthritis, unspecified site; E11.9 Type 2 diabetes mellitus without complications; E66.9 Obesity, unspecified; Z88.0 Allergy status to penicillin; Z88.1 Allergy status to other antibiotic agents; Z79.899 Other long term (current) drug therapy; Z79.84 Long term (current) use of oral hypoglycemic drugs
CPT/HCPCS: 36415; 71045; 80053; 83605; 85025; 86140; 87040; 96374; 99285; A9270; J1885; J3490; U0002; J7613-GY

== ENCOUNTER 2022-12-13 06:09 | Day surgery (SDC) | payer MEDICAID, MEDICARE, OTHER ==
[~2022-12-13 06:09] MED LIST: Dextrose 5%-0.45% NaCl 1,000 ML IV SCH
[2022-12-13] MEDS ORDERED: fentaNYL 100 MCG/2 ML SDV IV ONE ×3 (06:18→06:35)
[2022-12-13] MEDS ORDERED: fentaNYL 100 MCG/2 ML SDV ONE (06:18)
[2022-12-13] MEDS ORDERED: Midazolam 1 MG/ML 2 ML SDV IV ONE ×5 (06:18→06:45)
[2022-12-13] MEDS ORDERED: Midazolam 1 MG/ML 2 ML SDV ONE (06:18)
[2022-12-13 08:06] VITALS: BP 147/73; PULSE 73
== END 2022-12-13 08:11 | disposition home or self-care (01) ==
LOC: EEVIPCON 06:09 → DL.ENDO 06:09
PROVIDERS: ATTEND Internal Medicine Gastroenterology
DX: Z12.11 Encounter for screening for malignant neoplasm of colon (principal); D12.2 Benign neoplasm of ascending colon; J44.9 Chronic obstructive pulmonary disease, unspecified; E11.9 Type 2 diabetes mellitus without complications; E78.5 Hyperlipidemia, unspecified; I10 Essential (primary) hypertension; G47.33 Obstructive sleep apnea (adult) (pediatric); M85.80 Other specified disorders of bone density and structure, unspecified site; E66.09 Other obesity due to excess calories; Z68.41 Body mass index [BMI] 40.0-44.9, adult; Z90.49 Acquired absence of other specified parts of digestive tract; Z98.890 Other specified postprocedural states; Z88.0 Allergy status to penicillin
CPT/HCPCS: J2250; J3010; J7042

== ENCOUNTER 2023-03-15 14:31 | Emergency (ER) | payer MEDICARE ==
[2023-03-15 14:52] VITALS: BP 133/75; PULSE 92
[2023-03-15] MEDS ORDERED: Albuterol/Ipratropium 3.0-0.5 MG/3 ML Neb Soln NEB ONE (14:52)
[2023-03-15] MEDS ORDERED: Dexamethasone 4 MG/ML SDV IVPUSH ONE (14:53)
[2023-03-15] MEDS ORDERED: Magnesium Sulfate/Water 2 GM in Premix Bag 1 BAG IV ONE (14:53)
[2023-03-15] MEDS ORDERED: Sodium Chloride 0.9% 10 ML Syringe FLUSH PRN (14:54)
[2023-03-15] MEDS ORDERED: cefTRIAXone 2 GM Vial IVPUSH ONE (15:42)
[2023-03-15] MEDS ORDERED: Take Home: predniSONE 20 MG, 4 Tab Pack PO ONE (15:44)
[2023-03-15] MEDS ORDERED: Take Home: Doxycycline 100 MG Cap, 4 Cap Pack PO ONE (15:44)
== END 2023-03-15 16:23 | disposition home or self-care (01) ==
LOC: DL.ED 14:31
DX: J44.1 Chronic obstructive pulmonary disease with (acute) exacerbation (principal); J18.1 Lobar pneumonia, unspecified organism; I10 Essential (primary) hypertension; E78.00 Pure hypercholesterolemia, unspecified; J44.9 Chronic obstructive pulmonary disease, unspecified; E11.9 Type 2 diabetes mellitus without complications; E66.9 Obesity, unspecified; Z90.49 Acquired absence of other specified parts of digestive tract; Z79.84 Long term (current) use of oral hypoglycemic drugs; Z79.899 Other long term (current) drug therapy; Z88.0 Allergy status to penicillin; Z88.1 Allergy status to other antibiotic agents; Z68.36 Body mass index [BMI] 36.0-36.9, adult
CPT/HCPCS: 71046; 96374; 96375; 99285; J1100; J3475; 99284; J7620-GY

== ENCOUNTER 2023-04-27 13:07 | Emergency (ER) | payer MEDICARE, OTHER ==
[2023-04-27] MEDS: Sodium Chloride 0.9% 10 ML Syringe FLUSH PRN (13:58)
[2023-04-27 14:04] LABS: BASOPHILS PERCENT AUTO 0.1 % (0.0-1.0); EOSINOPHILS PERCENT AUTO 1.3 % (1.0-3.0); HEMATOCRIT 43.2 % (37.0-47.0); HEMOGLOBIN 13.9 g/dL (12.0-16.0); LYMPHOCYTES PERCENT AUTO 17.3 % (20.5-50.1); MEAN CORPUSCULAR HEMOGLOBIN 29.4 pg (27.0-34.0); MEAN CORPUSCULAR HGB CONC 32.2 g/dL (33.0-35.0); MEAN CORPUSCULAR VOLUME 91.3 fL (80-100); MONOCYTES PERCENT AUTO 5.3 % (2-8); PLATELET COUNT,PLT 261 10^3/uL (150-450); RED BLOOD CELL COUNT 4.73 10^6/uL (4.2-5.4); WHITE BLOOD CELL COUNT,WBC 17.1 10^3/uL (5.0-10.0)
[2023-04-27 14:23] LABS: A/G RATIO 0.64; ALBUMIN 3.2 g/dL (3.4-5.0); ANION GAP 13.7 mEq/L (7-13); BILIRUBIN TOTAL 0.3 mg/dL (0.2-1.0); BUN/CREATININE RATIO 15.7 (No establ ref range); C-REACTIVE PROTEIN 13.95 ng/dL (<=0.50); CALCIUM 8.5 mg/dL (8.5-10.1); CREATININE 0.83 mg/dL (0.55-1.02); EST CRCL DRUG DOSING (CG) 50.59 mL/min; POTASSIUM,K 3.7 mmol/L (3.5-5.1); PROTEIN TOTAL,TP 8.2 g/dL (6.4-8.2)
[2023-04-27 14:26] LABS: LACTIC ACID 1.8 mmol/L (0.4-2.0)
[2023-04-27 14:40] LABS: CORONAVIRUS COVID-19 NAA NEGATIVE (NEGATIVE); INFLUENZA A NAA NEGATIVE (NEGATIVE); INFLUENZA B NAA NEGATIVE (NEGATIVE)
[2023-04-27] MEDS: Levofloxacin/Dextrose 5%-Water 750 MG in Premix Bag 1 BAG IV ONE (14:55)
[2023-04-27 17:00] VITALS: BP 120/69; PULSE 84
== END 2023-04-27 16:44 | disposition home or self-care (01) ==
LOC: DL.ED 13:07
DX: J18.1 Lobar pneumonia, unspecified organism (principal); I10 Essential (primary) hypertension; J45.909 Unspecified asthma, uncomplicated; E78.00 Pure hypercholesterolemia, unspecified; E66.9 Obesity, unspecified; E11.9 Type 2 diabetes mellitus without complications; Z68.39 Body mass index [BMI] 39.0-39.9, adult; Z90.49 Acquired absence of other specified parts of digestive tract; Z88.0 Allergy status to penicillin; Z88.8 Allergy status to other drugs, medicaments and biological substances; Z79.84 Long term (current) use of oral hypoglycemic drugs; Z79.899 Other long term (current) drug therapy
CPT/HCPCS: 0240U; 36415; 71046; 80053; 83605; 85025; 86140; 87040; 96365; 99284; 99285; J1956; J3490

== ENCOUNTER 2023-06-22 16:33 | Emergency (ER) | payer MEDICARE, OTHER ==
[2023-06-22] MEDS: predniSONE 20 MG Tab PO ONE (17:08)
[2023-06-22] MEDS: Albuterol/Ipratropium 3.0-0.5 MG/3 ML Neb Soln NEB ONE (17:09)
[2023-06-22 17:43] VITALS: BP 104/56; PULSE 98
[2023-06-22 18:00] LABS: CORONAVIRUS COVID-19 NAA NEGATIVE (NEGATIVE); INFLUENZA A NAA NEGATIVE (NEGATIVE); INFLUENZA B NAA POSITIVE (NEGATIVE)
[2023-06-22] MEDS: Oseltamivir 75 MG Cap PO ONE (19:07)
[2023-06-22] MEDS: guaiFENesin 100 MG/5 ML Soln 5 ML UD Cup PO ONE (19:07)
== END 2023-06-22 19:12 | disposition home or self-care (01) ==
LOC: DL.ED 16:33
DX: J10.1 Influenza due to other identified influenza virus with other respiratory manifestations (principal); I10 Essential (primary) hypertension; E78.00 Pure hypercholesterolemia, unspecified; J44.89 Other specified chronic obstructive pulmonary disease; E11.9 Type 2 diabetes mellitus without complications; E66.9 Obesity, unspecified; Z68.41 Body mass index [BMI] 40.0-44.9, adult; Z79.51 Long term (current) use of inhaled steroids; Z88.0 Allergy status to penicillin; Z88.1 Allergy status to other antibiotic agents; Z79.84 Long term (current) use of oral hypoglycemic drugs; Z79.899 Other long term (current) drug therapy; Z90.49 Acquired absence of other specified parts of digestive tract
CPT/HCPCS: 0240U; 71046; 87081; 87430; 99283; 99284; A9270; J7512; J7620-GY

== ENCOUNTER 2023-07-01 15:20 | Emergency (ER) | payer MEDICARE, OTHER ==
[2023-07-01] MEDS: Albuterol/Ipratropium 3.0-0.5 MG/3 ML Neb Soln ONE (15:37)
[2023-07-01] MEDS: predniSONE 20 MG Tab PO ONE (16:06)
[2023-07-01 16:44] VITALS: BP 104/69; PULSE 74
== END 2023-07-01 16:50 | disposition home or self-care (01) ==
LOC: DL.ED 15:20
DX: J44.1 Chronic obstructive pulmonary disease with (acute) exacerbation (principal); I10 Essential (primary) hypertension; E78.00 Pure hypercholesterolemia, unspecified; E11.9 Type 2 diabetes mellitus without complications; E66.9 Obesity, unspecified; Z68.39 Body mass index [BMI] 39.0-39.9, adult; Z88.0 Allergy status to penicillin; Z88.1 Allergy status to other antibiotic agents; Z90.49 Acquired absence of other specified parts of digestive tract; Z87.891 Personal history of nicotine dependence; Z79.84 Long term (current) use of oral hypoglycemic drugs; Z79.899 Other long term (current) drug therapy
CPT/HCPCS: 71046; 99284; J7512; J7620-GY

== ENCOUNTER 2024-05-08 13:29 | Emergency (ER) | payer MEDICARE ==
[2024-05-08 14:11] LABS: BASOPHILS PERCENT AUTO 0.1 % (0.0-1.0); HEMATOCRIT 41.9 % (37.0-47.0); HEMOGLOBIN 13.2 g/dL (12.0-16.0); LYMPHOCYTES PERCENT AUTO 8.5 % (20.5-50.1); MEAN CORPUSCULAR HEMOGLOBIN 28.6 pg (27.0-34.0); MEAN CORPUSCULAR HGB CONC 31.5 g/dL (33.0-35.0); MEAN CORPUSCULAR VOLUME 90.9 fL (80-100); MONOCYTES PERCENT AUTO 7.9 % (2-8); NEUTROPHILS PERCENT AUTO 83.5 % (42.2-75.2); PLATELET COUNT,PLT 230 10^3/uL (150-450); RED BLOOD CELL COUNT 4.61 10^6/uL (4.2-5.4)
[2024-05-08] MEDS: Ondansetron 4 MG/2 ML SDV IVPUSH ONE (14:15)
[2024-05-08] MEDS: Sodium Chloride 0.9% 500 ML IV SCH (14:15)
[2024-05-08 14:32] LABS: ALBUMIN 3.1 g/dL (3.4-5.0); ANION GAP 14.4 mEq/L (7-13); BILIRUBIN DIRECT 0.1 mg/dL (0.0-0.2); BILIRUBIN INDIRECT 0.2; BILIRUBIN TOTAL 0.3 mg/dL (0.2-1.0); CALCIUM 8.7 mg/dL (8.5-10.1); CREATININE 1.04 mg/dL (0.55-1.02); EST CRCL DRUG DOSING (CG) 39.81 mL/min; POTASSIUM,K 3.4 mmol/L (3.5-5.1); PROTEIN TOTAL,TP 7.8 g/dL (6.4-8.2)
[2024-05-08 14:38] LABS: A/G RATIO 0.66
[2024-05-08] MEDS: Acetaminophen 325 MG Tab PO ONE (15:14)
[2024-05-08 16:08] VITALS: BP 106/60; PULSE 92
[2024-05-08] MEDS: Oseltamivir 75 MG Cap PO ONE (16:38)
[2024-05-08] MEDS: methylPREDNISolone Sodium Succinate 125 MG/2 ML SDV IVPUSH ONE (16:38)
== END 2024-05-08 17:08 | disposition home or self-care (01) ==
LOC: DL.ED 13:29
DX: J11.1 Influenza due to unidentified influenza virus with other respiratory manifestations (principal); I10 Essential (primary) hypertension; E78.00 Pure hypercholesterolemia, unspecified; E11.9 Type 2 diabetes mellitus without complications; J44.89 Other specified chronic obstructive pulmonary disease; Z90.49 Acquired absence of other specified parts of digestive tract; Z88.1 Allergy status to other antibiotic agents; Z88.0 Allergy status to penicillin; Z79.899 Other long term (current) drug therapy; Z79.51 Long term (current) use of inhaled steroids
CPT/HCPCS: 36415; 71045; 80048; 80076; 84484; 85025; 87040; 87428; 93005; 96361; 96374; 96375; 99285; A9270; J2405; J2919; J7030; 93010; 99284